=== PATIENT | male | born 1995 | race Caucasian/White ===

== ENCOUNTER 2019-01-24 14:23 | Emergency (ER) | payer OTHER, SELFPAY ==
[~2019-01-24] VITALS: Ht 188 cm; Wt 119.6 kg
[~2019-01-24 14:23] MED LIST: CETI10TA OR; CONC18TA OR; VICO5TAB PO; VITACAP33 PO
[2019-01-24] MEDS ORDERED: NALT50TA4 (14:31)
[2019-01-24] MEDS ORDERED: BUPR1TAB52 (14:31)
[2019-01-24] MEDS ORDERED: INVE1.75 (14:31)
[2019-01-24 15:45] LABS: HEMATOCRIT 46.3 % (42.0-52.0); HEMOGLOBIN 16.7 g/dl (13.5-17.5); MEAN CORPUSCULAR HEMOGLOBIN 32.9 pg (27.0-33.0); MEAN CORPUSCULAR HGB CONC 36.1 g/dl (32.0-36.5); MEAN CORPUSCULAR VOLUME 91.1 fl (80.0-96.0); PLATELET COUNT, AUTOMATED 258 10^3/uL (150-450); RED BLOOD COUNT 5.08 10^6/uL (4.30-6.10); WHITE BLOOD COUNT 9.2 10^3/uL (4.0-10.0)
[2019-01-24 16:13] LABS: ACETAMINOPHEN LEVEL < 2.0 UG/ML (10.0-30.0); ALBUMIN 4.2 GM/DL (3.2-5.2); ALT/SGPT 169 U/L (12-78); BILIRUBIN,DIRECT 0.4 MG/DL (0.0-0.2); BILIRUBIN,TOTAL 1.1 MG/DL (0.2-1.0); BLOOD UREA NITROGEN 13 MG/DL (7-18); CALCIUM LEVEL 9.1 MG/DL (8.5-10.1); CARBON DIOXIDE LEVEL 26 MEQ/L (21-32); CHLORIDE LEVEL 103 MEQ/L (98-107); CREATININE FOR GFR 0.96 MG/DL (0.70-1.30); ETHYL ALCOHOL (ETHANOL) < 0.003 % (0.000-0.010); GLOMERULAR FILTRATION RATE > 60.0 (>60); GLUCOSE, FASTING 120 MG/DL (70-100); POTASSIUM SERUM 3.6 MEQ/L (3.5-5.1); SALICYLATE LEVEL < 1.7 MG/DL (5.0-30.0); SODIUM LEVEL 139 MEQ/L (136-145)
[2019-01-24 17:47] LABS: AMPHETAMINES LEVEL URINE NEGATIVE (NEGATIVE); BARBITURATES URINE NEGATIVE (NEGATIVE); BENZODIAZEPINES URINE NEGATIVE (NEGATIVE); CANNABINOIDS URINE NEGATIVE (NEGATIVE); COCAINE METABOLITE URINE NEGATIVE (NEGATIVE); METHADONE URINE NEGATIVE (NEGATIVE); OPIATES URINE NEGATIVE (NEGATIVE); PHENCYCLIDINE URINE NEGATIVE (NEGATIVE)
[2019-01-25] MEDS ORDERED: NICOTINE 14 MG/24 HR TRANSDERMAL TD ONE (07:30)
[2019-01-25] MEDS ORDERED: buPROPion (WELLBUTRIN SR) 100 MG SR TAB PO ONE (07:30)
[2019-01-25] MEDS ORDERED: NALTREXONE 50 MG TAB PO ONE (07:30)
[2019-01-25 08:33] VITALS: BP 132/70
--- NOTE | 2019-01-25 13:24 | ECGEPIP ---
[facility] - ED Test Date: 2019-01-25 Pat Name: ORLANDO EM Department: Room: - Gender: Male Disease Control Inspector: VANIA : 1995 Requested By: ANITHA Schwartz Order Number: [id number] Reading MD: Quinton Celeste Measurements Intervals [place] Rate: 74 P: 33 PA: 127 QRS: 51 QRSD: 120 T: 41 QT: 388 QTc: 431 Interpretive Statements SINUS RHYTHM INCOMPLETE RIGHT BUNDLE BRANCH BLOCK BENIGN EARLY REPOLARIZATION NO PRIORS FOR COMPARISON Electronically Signed on 01-25-2019 13:23:53 EDT by Quinton Celeste
== END 2019-01-25 08:35 | disposition short-term general hospital (02) ==
LOC: M ED 15:44
DX: R45.851 Suicidal ideations (principal); F31.9 Bipolar disorder, unspecified; Z79.899 Other long term (current) drug therapy; F17.210 Nicotine dependence, cigarettes, uncomplicated
CPT/HCPCS: 36415; 80048; 80076; 80307; 84443; 85027; 93005; 99284; G0480

== ENCOUNTER 2019-05-06 11:30 | Inpatient (IN) | payer MEDICAID, OTHER, SELFPAY ==
[~2019-05-06] VITALS: Ht 188 cm; Wt 115.3 kg
[2019-05-06] MEDS: MULTIVITAMINS/MINERALS THERAP 1 TAB PO SCH (09:00)
[2019-05-06] MEDS: FOLIC ACID 1 MG TAB PO SCH (09:00)
[~2019-05-06 11:30] MED LIST changes: +BUPR1TAB52; +INVE1.75 IM; +NALT50TA4
[2019-05-06 12:18] LABS: HEMOGLOBIN 16.9 g/dl (13.5-17.5); MEAN CORPUSCULAR HEMOGLOBIN 33.3 pg (27.0-33.0); MEAN CORPUSCULAR VOLUME 92.5 fl (80.0-96.0); PLATELET COUNT, AUTOMATED 200 10^3/uL (150-450); RED BLOOD COUNT 5.08 10^6/uL (4.30-6.10); WHITE BLOOD COUNT 10.4 10^3/uL (4.0-10.0)
[2019-05-06 12:31] LABS: AMPHETAMINES LEVEL URINE NEGATIVE (NEGATIVE); BARBITURATES URINE NEGATIVE (NEGATIVE); BENZODIAZEPINES URINE NEGATIVE (NEGATIVE); CANNABINOIDS URINE NEGATIVE (NEGATIVE); COCAINE METABOLITE URINE NEGATIVE (NEGATIVE); METHADONE URINE NEGATIVE (NEGATIVE); OPIATES URINE NEGATIVE (NEGATIVE); PHENCYCLIDINE URINE NEGATIVE (NEGATIVE)
[2019-05-06 12:56] LABS: ACETAMINOPHEN LEVEL < 2.0 UG/ML (10.0-30.0); ALBUMIN 4.2 GM/DL (3.2-5.2); ALT/SGPT 100 U/L (12-78); BILIRUBIN,DIRECT 0.2 MG/DL (0.0-0.2); BILIRUBIN,TOTAL 0.9 MG/DL (0.2-1.0); BLOOD UREA NITROGEN 7 MG/DL (7-18); CALCIUM LEVEL 9.1 MG/DL (8.5-10.1); CARBON DIOXIDE LEVEL 23 MEQ/L (21-32); CHLORIDE LEVEL 103 MEQ/L (98-107); CREATININE FOR GFR 0.95 MG/DL (0.70-1.30); ETHYL ALCOHOL (ETHANOL) < 0.003 % (0.000-0.010); GLOMERULAR FILTRATION RATE > 60.0 (>60); GLUCOSE, FASTING 119 MG/DL (70-100); POTASSIUM SERUM 4.3 MEQ/L (3.5-5.1); SALICYLATE LEVEL < 1.7 MG/DL (5.0-30.0); SODIUM LEVEL 138 MEQ/L (136-145); TOTAL PROTEIN 7.7 GM/DL (6.4-8.2)
[2019-05-06] MEDS ORDERED: NICOTINE 21MG/24HR 1 EA TRANSDERMAL TD ONE (13:30)
[2019-05-06] MEDS ORDERED: MOM 30ML SUSPENSION UDC PO PRN (16:45)
[2019-05-06] MEDS ORDERED: LORazepam 1 MG TAB PO ONE (16:45)
[2019-05-06] MEDS ORDERED: MAALOX 30 ML SUSP *UDC PO PRN (16:45)
[2019-05-06 19:14] VITALS: BP 129/62
[2019-05-06 20:45] VITALS: BP 141/66
[2019-05-06] MEDS: THIAMINE 100 MG TAB PO SCH (20:47)
[2019-05-06] MEDS: LORazepam 2 MG TAB PO PRN (20:48)
[2019-05-06] MEDS: traZODone 50 MG TAB PO PRN (23:04)
[2019-05-06 23:06] VITALS: BP 111/75
[2019-05-07 06:22] VITALS: BP 117/62
[2019-05-07 06:23] VITALS: BP 117/62
[2019-05-07] MEDS ORDERED: INFLUENZA QUADRIVALENT PF VACCINE 0.5ML SYRINGE (90686) IM ONE (09:00)
[2019-05-07] MEDS ORDERED: NICOTINE 21MG/24HR 1 EA TRANSDERMAL TD SCH (09:00)
[2019-05-07] MEDS: MULTIVITAMINS/MINERALS THERAP 1 TAB PO SCH (09:17)
[2019-05-07] MEDS: FOLIC ACID 1 MG TAB PO SCH (09:17)
[2019-05-07] MEDS: THIAMINE 100 MG TAB PO SCH ×2 (09:18→20:19)
--- NOTE | 2019-05-07 09:28 | MHHPEPDOC ---
[facility] History & Physical History and Physical Date of Service: 05/07/2019 Chief Complaint "I just want to kill myself." History of Present Illness Patient, a 24-year old man with a history of schizo-affective disorder, presents to [facility] after multiple psychosocial stressors including joblessness, conflict with his mother, and seeing a young lady whose mother did not approve of, as well as multiple arguments and suffering from chronic ciarra cidality, presents to [facility] with suicidal thoughts. He reports that he has had increasing depression, loss of interest, fatigue, difficulty concentrating. He reports significant cannabis use recently. He describes that he has had episodes of nery in the past. He is currently on I nvega Trinza every 3 months, but reports that he has developed a persistent want to . On the unit, he reportedly last night told staff that he had tried to kill himself with tissue paper by trying to obstruct his airway. He reports a significant cough today. He was placed on a one-to-one out of abundance of caution. He does discuss the majority of these concerning symptoms with an unusual affect, which he giggles and laughs. He reports having a significantly complicated relationship with his girlfriend. He does report having ideas at times of being aggressive, but it appears randomly and intrusively. His symptoms are fairly bizarre in nature. Review Of Systems Depression: As above. Anxiety: The patient denies any excessive worry associated with physical symptoms. They deny any experience of discreet panic in the past. Nery: Has episodes of elation with grandiose thoughts, delusions, talkatively, pressured thought, decreased need for sleep lasting more than 5 days at a time, last episode several months ago. Psychotic: Has had episodes of auditory hallucination, separate from his mood episodes with some delusions. Trauma: The patient denies any traumatic events associated with nightmares or intrusive thoughts. Borderline: Not screened at this time. Past Psychiatric History Patient has an extensive psychiatric history in which he has been diagnosed with schizo-affective disorder and is currently treated at [facility] with Jaron Willis as his prescriber. He's currently on Invega Trinza for the last year. He reports that he has tolerated it well. He reports that his last admission was in January to [facility] full. Allergies Please see below. Family Psychiatric History He's unclear if any family members have mental health concerns. Social History Patient lives in the local area. Describes that he recently was working as a [employer] worker, but is currently unemployed. He lives on his own. His mother supplies him money to pay for an apartment. He currently has no means of money other than this. He describes that he's currently with a girlfriend of 1 month who is significantly addicted to heroin. He reports conflict with mother over this. He describes that he had had no major trauma or abuse that he can remember. He reportedly has no major legal problems that he is aware of at this time. Substance Abuse History Patient reports that he smokes a pack of tobacco a day. Drinks significantly to the point of blacking out, where he'll drink roughly half a handle of alcohol per night. He reports using hallucinogens several weeks ago and consistent cannabis use every day. Medical History Reports vaping recently and has a cough. Mental Status Examination General: Fair hygiene Speech: Fluid Thought processes: Linear and logical MSK: Smooth and coordinated gait, no signs of tremors or involuntary orofacial movements Thought content: Bizarre Abstract reasoning, and computation: Impaired Description of associations: Impaired Description of abnormal or psychotic thoughts: Admits to suicidal thoughts with no plan at this time. Denies any auditory or visual hallucinations. Does not appear to be responding to internal stimuli Judgment: poor Insight: poor Orientation: Alert and orientated 3 Cognition: Grossly normal Recent and remote memory: Intact Attention span and concentration: Intact Fund of knowledge: Adequate Mood: "fine" Affect: Inappropriate, incongruent with bizarre laughter Diagnoses Unspecified schizo-affective disorder. Rule out substance-induced from cannabis versus hallucinogens. Tobacco use disorder, severe. Alcohol use disorder, severe. Cannabis use disorder, severe. Hallucinogen use disorder, severe. Unspecified personality disorder. Likely cluster B. Assessment and Plan Unspecified schizo-affective disorder: Will add lithium 300 mg of controlled release nightly. Discuss risks, benefits, and potential side effects with patient as well as alternatives. Patient selected this out of a range of options. Tobacco use disorder: Offered Chantix, patient declined. Will continue nicotine patch. Alcohol use disorder: Alcohol withdrawal protocol. Discussed naltrexone. Patient pre-contemplative about naltrexone and injectable. Hallucinogen use disorder: Continue to monitor. Unspecified personality disorder: Monitor for behavioral problems. Disposition Patient will need admission likely lasting longer than 2 midnights in order to treat his severe depression and suicidality. Problem List 1. Risk for suicide. 2. Substance abuse. 3. Depression. Initial Treatment Plan 1. Patient was admitted on a 39 legal status. 2. Complete history was obtained. 3. With patients permission, family will be contacted and database will be expanded. 4. Patients medication regimen will be reviewed and changed accordingly. 5. Patient will be provided with protected environment. 6. Patient will be treated with individual, group, and milieu therapies. 7. Patient will receive supportive psych-education. 8. Discharge planning will commence immediately. 9. Outpatient follow-up treatment will be strongly recommended. 10. The initial treatment plan will focus initially on: Estimated Length Of Stay 5 days. Time Spent 40 minutes. Monday Vital Signs Vital Signs Date Time Temp Pulse Resp B/P (MAP) Pulse Ox O2 Delivery O2 Flow Rate FiO2 05/07/19 06:23 99.5 78 18 117/62 (80) 05/06/19 19:14 97 05/06/19 17:23 Room Air Laboratory Data 24H Labs Laboratory Tests 2 05/06/19 11:54: Nucleated Red Blood Cells % (auto) 0.0, Anion Gap 12, Glomerular Filtration Rate > 60.0, Calcium Level 9.1, Aspartate Amino Transf (AST/SGOT) 67H, Alanine Am inotransferase (ALT/SGPT) 100H, Alkaline Phosphatase 72, Total Bilirubin 0.9, Direct Bilirubin 0.2, Total Protein 7.7, Albumin 4.2, Albumin/Globulin Ratio 1.20, Thyroid Stimulating Hormone (TSH) 1.080, Salicylates Level < 1.7L, Acetaminophen Level < 2.0L, Ethyl Alcohol Level < 0.003 05/06/19 11:55: Urine Amphetamines Screen NEGATIVE, Urine Benzodiazepines Screen NEGATIVE, Urine Opiates Screen NEGATIVE, Urine Methadone Screen NEGATIVE, Urine Barbiturates Screen NEGATIVE, Urine Phencyclidine Screen NEGATIVE, Urine Cocaine Metabolite Screen NEGATIVE, Urine Cannabinoids Screen NEGATIVE CBC/BMP Laboratory Tests 05/06/19 11:54 Red Blood Count 5.08, Mean Corpuscular Volume 92.5, Mean Corpuscular Hemoglobin 33.3 H, Mean Corpuscular Hemoglobin Concent 36.0, Red Cell Distribution Width 12.2 Medications Scheduled Paliperidone Palmitate (Invega Trinza) 819 Mg/2.625 Ml Syringe, 819 MG IM Q3M, (Reported) Allergies Coded Allergies: No Known Allergies (Verified , 10/28/11) DELORES SANON DO May 07, 2019 09:28
[2019-05-07] MEDS ORDERED: LORazepam 0.5 MG TAB PO ONE (10:15)
[2019-05-07] MEDS: NICOTINE POLACRILEX 2 MG GUM PO PRN ×2 (10:18→16:31)
--- NOTE | 2019-05-07 10:46 | HPEPDOC ---
General Date of Admission May 06, 2019 at 16:38 Date of Service: May 07, 2019 Chief Complaint The patient is a 24-year-old male admitted with a reason for visit of Unspecified Depressive Disorder. Source: Patient, Old records History of Present Illness Mr. Beck is a 24 years old man admitted to [facility] for depression. Pt denies any symptoms. Compete ROS is negative. Vitals are good. Labs are fine, except for chronically and moderately elevated ALT and AST in the setting of alcohol use. Home Medications Scheduled Paliperidone Palmitate (Invega Trinza) 819 Mg/2.625 Ml Syringe, 819 MG IM Q3M, (Reported) Allergies Coded Allergies: No Known Allergies (Verified , 10/28/11) Past Medical History Medical History None Surgical History none Family History Significant Family History: No pertinent family hx Social History * Smoker: current smoker Alcohol: heavy Drugs: other (mushroom) A-FIB/CHADSVASC A-FIB History Current/History of A-Fib/PAF?: No Physical Examination General Exam: Positive: Alert, Cooperative, No Acute Distress Eye Exam: Positive: PERRLA, Conjunctiva & lids normal ENT Exam: Positive: Atraumatic, Mucous membr. moist/pink Neck Exam: Positive: Supple; Negative: JVD Chest Exam: Positive: Clear to auscultation, Normal air movement Heart Exam: Positive: Rate Normal, Normal S1, Normal S2; Negative: Murmurs Abdomen Exam: Positive: Normal bowel sounds, Soft, Tenderness Extremity Exam: Positive: Normal pulses; Negative: Edema Skin Exam: Positive: Nl turgor and temperature, Rash Neuro Exam: Positive: Normal Gait, Normal Speech, Strength at 5/5 X4 ext, Normal Tone Psych Exam: Positive: Mental status NL, Mood NL Vital Signs Vital Signs Date Time Temp Pulse Resp B/P (MAP) Pulse Ox O2 Delivery O2 Flow Rate FiO2 05/07/19 06:23 99.5 78 18 117/62 (80) 05/06/19 19:14 97 05/06/19 17:23 Room Air Laboratory Data Labs 24H Laboratory Tests 2 05/06/19 11:54: Nucleated Red Blood Cells % (auto) 0.0, Anion Gap 12, Glomerular Filtration Rate > 60.0, Calcium Level 9.1, Aspartate Amino Transf (AST/SGOT) 67H, Alanine Aminotransferase (ALT/SGPT) 100H, Alkaline Phosphatase 72, Total Bilirubin 0.9, Direct Bilirubin 0.2, Total Protein 7.7, Albumin 4.2, Albumin/Globulin Ratio 1.20, Thyroid Stimulating Hormone (TSH) 1.080, Salicylates Level < 1.7L, Acetaminophen Level < 2.0L, Ethyl Alcohol Level < 0.003 05/06/19 11:55: Urine Amphetamines Screen NEGATIVE, Urine Benzodiazepines Screen NEGATIVE, Urine Opiates Screen NEGATIVE, Urine Methadone Screen NEGATIVE, Urine Barbiturates Screen NEGATIVE, Urine Phencyclidine Screen NEGATIVE, Urine Cocaine Metabolite Screen NEGATIVE, Urine Cannabinoids Screen NEGATIVE CBC/BMP Laboratory Tests 05/06/19 11:54 Red Blood Count 5.08, Mean Corpuscular Volume 92.5, Mean Corpuscular Hemoglobin 33.3 H, Mean Corpuscular Hemoglobin Concent 36.0, Red Cell Distribution Width 12.2 Assessment/Plan Chronic Alcoholic Hepatitis - Outpatient f/u Plan / VTE VTE Prophylaxis Ordered?: No VTE Exclusion Mechanical Proph: Low Risk for VTE VTE Exclusion Pharmacological: At Low Risk for VTE GRACE PAGE MD May 07, 2019 10:46
[2019-05-07] MEDS: ACETAMINOPHEN TAB 650MG DOSE (2X325MG) PO PRN (14:37)
[2019-05-07] MEDS ORDERED: predniSONE 20 MG TAB PO ONE (15:30)
--- NOTE | 2019-05-07 15:53 | REP ---
CHEST, TWO VIEWS: There is no evidence of acute infiltrate. No pleural effusion is seen. The heart is normal in size. The mediastinal silhouette is unremarkable. The visualized osseous structures are intact. IMPRESSION: No acute pulmonary disease. Electronically Signed by Sukhwinder Bowens MD 05/07/2019 04:27 P
[2019-05-07 16:07] VITALS: BP 119/56
[2019-05-07] MEDS: traZODone 50 MG TAB PO PRN (20:19)
[2019-05-07] MEDS: DEXTROMETHORPHAN 60MG/10ML SUSP 90ML BTL(DELSYM) PO SCH (20:19)
[2019-05-07] MEDS ORDERED: LITHIUM CARBONATE 300 MG **CR** TAB PO SCH (21:00)
[2019-05-08] MEDS ORDERED: traZODone 50 MG TAB PO ONE
[2019-05-08 06:00] VITALS: BP 106/55
[2019-05-08 09:04] LABS: HEPATITIS B SURFACE ANTIGEN NEGATIVE (NEGATIVE)
[2019-05-08] MEDS: MULTIVITAMINS/MINERALS THERAP 1 TAB PO SCH (09:48)
[2019-05-08] MEDS: THIAMINE 100 MG TAB PO SCH ×2 (09:48→20:32)
[2019-05-08] MEDS: DEXTROMETHORPHAN 60MG/10ML SUSP 90ML BTL(DELSYM) PO SCH ×2 (09:48→22:42)
[2019-05-08] MEDS: FOLIC ACID 1 MG TAB PO SCH (09:48)
--- NOTE | 2019-05-08 10:01 | MHIPNPDOC ---
[facility] Progress Note Progress Note Date of Service: 05/08/2019 History of Present Illness Patient is a 24-year old man with a history of schizo-affective disorder, presents to [facility] after multiple psychosocial stressors including joblessness, conflict with his mother, and seeing a young lady whose mother did not approve of, as well as multiple arguments and suffering from chronic suicidality, presents to [facility] with suicidal thought s. He reports that he has had increasing depression, loss of interest, fatigue, difficulty concentrating. He reports significant cannabis use recently. He describes that he has had episodes of nery in the past. He is currently on Invega Trinza every 3 months, but reports that he has developed a persistent want to . On the unit, he reportedly last night told staff that he had tried to kill himself with tissue paper by trying to obstruct his airway. He reports a significant cough today. He was placed on a one-to-one out of abundance of caution. He does discuss the majority of these concerning symptoms with an unusual affect, which he giggles and laughs. He reports having a significantly complicated relationship with his girlfriend. Interval History The patient is met with today. He is really sedated In the morning, but was able to wake up. He reports that his mood is still somewhat irritable and that he does have continued suicidal thoughts but he is able to contract for safety. He was taken off the one-to-one. He reports that he does not get hopeless and stressed out about his current situation. No behavioral problems overnight. Tree oneill notes that he has been amenable and non-confrontational. Review Of Systems General: Denies fever or appetite changes Cardiovascular: Denies chest pain or palpitations GI: Denies Nausea, vomiting, or bowel changes Respiratory: Denies shortness of breath or cough Neuro: Denies dizziness, tremors Derm: Denies any rashes or pruritus : Denies any dysuria or urinary hesitancy MSK: Denies any muscle tightness or stiffness HEENT: Denies any sore throat or headaches Psychotherapy None on this visit. Vital Signs Reviewed. Mental Status Examination General: Fair hygiene Speech: Fluid Thought processes: Linear and logical MSK: Smooth and coordinated gait, no signs of tremors or involuntary orofacial movements Thought content: Bizarre Abstract reasoning, and computation: Impaired Description of associations: Impaired Description of abnormal or psychotic thoughts: Admits to suicidal thoughts with no plan at this time. Denies any auditory or visual hallucinations. Does not appear to be responding to internal stimuli Judgment: poor Insight: poor Orientation: Alert and orientated 3 Cognition: Grossly normal Recent and remote memory: Intact Attention span and concentration: Intact Fund of knowledge: Adequate Mood: "fine" Affect: Inappropriate, incongruent with bizarre laughter Diagnoses Unspecified schizo-affective disorder. Rule out substance-induced from cannabis versus hallucinogens. Tobacco use disorder, severe. Alcohol use disorder, severe. Cannabis use disorder, severe. Hallucinogen use disorder, severe. Unspecified personality disorder. Likely cluster B. Assessment and Plan Unspecified schizo-affective disorder: Lower lithium to 150 mg of immediate release due to sedation. Tobacco use disorder: Offered Chantix, patient declined. Will continue nicotine patch. Alcohol use disorder: Alcohol withdrawal protocol. Discussed naltrexone. Patient pre-contemplative about naltrexone and injectable. Hallucinogen use disorder: Continue to monitor. Unspecified personality disorder: Monitor for behavioral problems. Disposition The patient will need further admission due to his unusual psychotic like symptoms and severe hopelessness and depression as well as consistent suicidal thoughts to stabilize his situation and to protect him from injuring himself. Time Spent 20 minutes [id number]. Monday Vital Signs Vital Signs Date Time Temp Pulse Resp B/P (MAP) Pulse Ox O2 Delivery O2 Flow Rate FiO2 05/08/19 06:00 98.1 70 12 106/55 (72) 05/07/19 09:00 Room Air 05/06/19 19:14 97 Current Medications Current Medications Medications (Trade) Dose Ordered Sig/Toño Route PRN Reason Start Time Stop Time Status Last Admin Dose Admin Acetaminophen (Tylenol Tab) 650 mg Q6HP PRN PO HEADACHE or DISCOMFORT 05/06/19 16:45 05/07/19 14:37 Al Hydrox/Mg Hydrox/Simethicone (Mylanta) 30 ml Q4HP PRN PO HEARTBURN/INDIGESTION 05/06/19 16:45 05/08/19 03:34 Dextromethorphan (Delsym Af 12hr Susp) 60 mg Q12H PO 05/07/19 21:00 05/08/19 09:48 Folic Acid (Folic Acid) 1 mg DAILY PO 05/06/19 09:00 05/08/19 09:48 Home Med (Med Rec Complete!) ASDIRECTED XX 05/06/19 14:00 05/06/19 14:19 DC [place] Carbonate (Lithobid Cr) 300 mg QHS PO 05/07/19 21:00 05/07/19 20:19 Lorazepam (Ativan) 2 mg ASDIRECTED PRN PO SEE PROTOCOL 05/06/19 19:30 05/06/19 20:48 Magnesium Hydroxide (Milk Of Magnesia) 30 ml DAILYPRN PRN PO CONSTIPATION 05/06/19 16:45 Multivitamins (Theragram-M) 1 tab DAILY PO 05/06/19 09:00 05/08/19 09:48 Nicotine (Nicoderm Cq 21mg) 1 patch DAILY TD 05/07/19 09:00 05/07/19 09:50 DC Nicotine (Nicorette) 2 mg Q2HP PRN PO SMOKING CESSATION 05/07/19 09:45 05/07/19 16:31 Thiamine HCl (Thiamine HCl) 100 mg BID PO 05/06/19 21:00 05/09/19 09:01 05/08/19 09:48 Trazodone HCl (Desyrel) 50 mg QHSP PRN PO INSOMNIA 05/06/19 16:45 05/07/19 20:19 Allergies Coded Allergies: No Known Allergies (Verified , 10/28/11) DELORES SANON DO May 08, 2019 10:01
[2019-05-08 12:29] LABS: HEPATITIS C VIRUS ABY INDEX 0.1 INDEX (<0.8)
[2019-05-08 13:57] VITALS: BP 133/69
[2019-05-08] MEDS: NICOTINE POLACRILEX 2 MG GUM PO PRN ×2 (14:00→20:38)
[2019-05-08] MEDS: LORazepam 2 MG TAB PO PRN ×2 (14:00→20:36)
[2019-05-08 15:32] VITALS: BP 163/77
[2019-05-08] MEDS: ACETAMINOPHEN TAB 650MG DOSE (2X325MG) PO PRN (20:32)
[2019-05-08] MEDS: LITHIUM CARBONATE 150 MG CAP PO SCH (20:33)
[2019-05-08 20:39] VITALS: BP 114/76
[2019-05-08] MEDS ORDERED: LITHIUM CARBONATE 300 MG **CR** TAB PO SCH (21:00)
[2019-05-09 06:30] VITALS: BP 124/73
--- NOTE | 2019-05-09 08:21 | MHIPNPDOC ---
[facility] Progress Note Progress Note Inpatient Progress Note Osmani Beck MRN: N/A Date of : N/A Date of Service: 05/09/2019 History of Present Illness Patient is a 24-year old man with a history of schizo-affective disorder, presents to [facility] after multiple psychosocial stressors including joblessness, conflict with his mother, and seeing a young lady whose mother did not approve of, as well as multiple arguments and suffering from chronic suicidality, presents to [facility] with suicidal thoughts. He reports that he has had increasing depression, loss of interest, fatigue, difficulty concentrating. He reports significant cannabis use recently. He describes that he has had episodes of nery in the past. He is currently on Invega Trinza every 3 months, but reports that he has developed a persistent want to . On the unit, he reportedly last night told staff that he had tried to kill himself with tissue paper by trying to obstruct his airway. He reports a significant cough today. He was placed on a one-to-one out of abundance of caution. He does discuss the majority of these concerning symptoms with an unusual affect, which he giggles and laughs. He reports having a significantly complicated relationship with his girlfriend. Interval History Patient's met with. He describes still being hopeless, depressed and sedated. He reports that he sleeps the majority of the day. He reports that he's still having difficulty with energy and that he has lost much interest in his daily activities. He has not had any major behavioral problems and is amenable to staff, redirectable and has not attended any groups. Review Of Systems General: Denies fever or appetite changes Cardiovascular: Denies chest pain or palpitations GI: Denies Nausea, vomiting, or bowel changes Respiratory: Denies shortness of breath or cough Neuro: Denies dizziness, tremors Derm: Denies any rashes or pruritus : Denies any dysuria or urinary hesitancy MSK: Denies any muscle tightness or stiffness HEENT: Denies sore throat at this time and headaches Psychotherapy None on this visit. Vital Signs Reviewed. Mental Status Examination General: Fair hygiene Speech: Fluid Thought processes: Linear and logical MSK: Smooth and coordinated gait, no signs of tremors or involuntary orofacial movements Thought content: Bizarre Abstract reasoning, and computation: Impaired Description of associations: Impaired Description of abnormal or psychotic thoughts: Admits to suicidal thoughts with no plan at this time. Denies any auditory or visual hallucinations. Does not appear to be responding to internal stimuli Judgment: poor Insight: poor Orientation: Alert and orientated 3 Cognition: Grossly normal Recent and remote memory: Intact Attention span and concentration: Intact Fund of knowledge: Adequate Mood: "Okay" Affect: Inappropriate, incongruent with bizarre laughter Diagnoses Unspecified schizoaffective disorder. Rule out substance-induced from cannabis versus hallucinogens. Tobacco use disorder, severe. Alcohol use disorder, severe. Cannabis use disorder, severe. Hallucinogen use disorder, severe. Unspecified personality disorder. Likely cluster B. Assessment and Plan Unspecified schizoaffective disorder: Continue lithium 150 mg of extended release. Tobacco use disorder: Offered Chantix, patient declined. Will continue nicotine patch. Alcohol use disorder: Alcohol withdrawal protocol. Discussed naltrexone. Patient pre-contemplative about naltrexone and injectable. Hallucinogen use disorder: Continue to monitor. Unspecified personality disorder: Monitor for behavioral problems. Fatigue: Continue modafinil 50 mg daily. Disposition The patient will need further admission due to his unusual psychotic like symptoms and severe hopelessness and depression as well as consistent suicidal thoughts to stabilize his situation and to protect him from injuring himself. Time Spent Twenty minutes Vital Signs Vital Signs Date Time Temp Pulse Resp B/P (MAP) Pulse Ox O2 Delivery O2 Flow Rate FiO2 05/09/19 06:30 97.8 70 18 124/73 (90) 05/08/19 12:30 Room Air 05/06/19 19:14 97 Current Medications Current Medications Medications (Trade) Dose Ordered Sig/Toño Route PRN Reason Start Time Stop Time Status Last Admin Dose Admin Acetaminophen (Tylenol Tab) 650 mg Q6HP PRN PO HEADACHE or DISCOMFORT 05/06/19 16:45 05/08/19 20:32 Al Hydrox/Mg Hydrox/Simethicone (Mylanta) 30 ml Q4HP PRN PO HEARTBURN/INDIGESTION 05/06/19 16:45 05/08/19 03:34 Dextromethorphan (Delsym Af 12hr Susp) 60 mg Q12H PO 05/07/19 21:00 05/08/19 22:42 Folic Acid (Folic Acid) 1 mg DAILY PO 05/06/19 09:00 05/08/19 09:48 Home Med (Med Rec Complete!) ASDIRECTED XX 05/06/19 14:00 05/06/19 14:19 DC [place] Carbonate ([place]nci Carbonate) 150 mg QHS PO 05/08/19 21:00 05/08/19 20:33 [place] Carbonate (Lithobid Cr) 150 mg QHS PO 05/08/19 21:00 UNV [place] Carbonate (Lithobid Cr) 300 mg QHS PO 05/07/19 21:00 05/08/19 15:03 DC 05/07/19 20:19 Lorazepam (Ativan) 2 mg ASDIRECTED PRN PO SEE PROTOCOL 05/06/19 19:30 05/08/19 20:36 Magnesium Hydroxide (Milk Of Magnesia) 30 ml DAILYPRN PRN PO CONSTIPATION 05/06/19 16:45 Multivitamins (Theragram-M) 1 tab DAILY PO 05/06/19 09:00 05/08/19 09:48 Nicotine (Nicoderm Cq 21mg) 1 patch DAILY TD 05/07/19 09:00 05/07/19 09:50 DC Nicotine (Nicorette) 2 mg Q2HP PRN PO SMOKING CESSATION 05/07/19 09:45 05/08/19 20:38 Thiamine HCl (Thiamine HCl) 100 mg BID PO 05/06/19 21:00 05/09/19 09:01 05/08/19 20:32 Trazodone HCl (Desyrel) 50 mg QHSP PRN PO INSOMNIA 05/06/19 16:45 05/07/19 20:19 Allergies Coded Allergies: No Known Allergies (Verified , 10/28/11) DELORES SANON DO May 09, 2019 08:21
[2019-05-09] MEDS: FOLIC ACID 1 MG TAB PO SCH (08:56)
[2019-05-09] MEDS: MULTIVITAMINS/MINERALS THERAP 1 TAB PO SCH (08:56)
[2019-05-09] MEDS: THIAMINE 100 MG TAB PO SCH (08:56)
[2019-05-09] MEDS: NICOTINE POLACRILEX 2 MG GUM PO PRN ×3 (08:57→17:57)
[2019-05-09] MEDS: DEXTROMETHORPHAN 60MG/10ML SUSP 90ML BTL(DELSYM) PO SCH ×2 (09:57→19:57)
[2019-05-09] MEDS ORDERED: MODAFINIL 100 MG TABLET PO ONE (11:15)
[2019-05-09] MEDS ORDERED: PILL CUTTER 1 EACH XX PRN (11:45)
[2019-05-09 18:47] VITALS: BP 124/67
[2019-05-09 19:52] VITALS: BP 104/71
[2019-05-09] MEDS: LITHIUM CARBONATE 150 MG CAP PO SCH (19:56)
[2019-05-10 06:06] VITALS: BP 109/56
[2019-05-10] MEDS ORDERED: MODAFINIL 100 MG TABLET PO SCH (09:00)
[2019-05-10] MEDS: DEXTROMETHORPHAN 60MG/10ML SUSP 90ML BTL(DELSYM) PO SCH ×2 (09:44→19:37)
[2019-05-10] MEDS: MULTIVITAMINS/MINERALS THERAP 1 TAB PO SCH (09:44)
[2019-05-10] MEDS: FOLIC ACID 1 MG TAB PO SCH (09:44)
[2019-05-10 10:00] VITALS: BP 109/56
[2019-05-10 13:45] VITALS: BP 118/62
[2019-05-10] MEDS: LORazepam 2 MG TAB PO PRN (14:00)
[2019-05-10] MEDS ORDERED: LORazepam 1 MG TAB PO ONE (18:15)
[2019-05-10 18:21] VITALS: BP 111/62
--- NOTE | 2019-05-10 18:50 | MHIPNPDOC ---
[facility] Progress Note Progress Note Inpatient Progress Note Osmani Beck MRN: N/A Date of : N/A Date of Service: 05/10/2019 History of Present Illness Patient is a 24-year old man with a history of schizo-affective disorder, presents to [facility] after multiple psychosocial stressors including joblessness, conflict with his mother, and seeing a young lady whose mother did not approve of, as well as multiple arguments and suffering from chronic suicidality, presents to [facility] with suicidal thoughts. He reports that he has had increasing depression, loss of interest, fatigue, difficulty concentrating. He reports significant cannabis use recently. He describes that he has had episodes of nery in the past. He is currently on Invega Trinza every 3 months, but reports that he has developed a persistent want to . On the unit, he reportedly last night told staff that he had tried to kill himself with tissue paper by trying to obstruct his airway. He reports a significant cough today. He was placed on a one-to-one out of abundance of caution. He does discuss the majority of these concerning symptoms with an unusual affect, which he giggles and laughs. He reports having a significantly complicated relationship with his girlfriend. Interval History The patient's met with today. He reports that he still feels fairly sedated and had woken much later in the day. He described that he got angry with all the yelling, but that he had no intention of harming anyone. He still remains in behavioral control, not attending groups, but demonstrating no concerning behavior. He reports continued suicidal thoughts, hopelessness, difficulty with finding meaning in his life and significant fatigue, loss of interest that makes it difficult for him to work. He reports that he's not sure if the lithium is helpful. He describes that overall he's unsure if he'll ever get better. Reportedly that he stated that he had "wanted to kill himself once he left and felt that there was no hope." Patient reports some increased irritability and restlessness since taking the modafinil. Review Of Systems General: Denies fever or appetite changes Cardiovascular: Denies chest pain or palpitations GI: Denies Nausea, vomiting, or bowel changes Respiratory: Denies shortness of breath or cough Neuro: Denies dizziness, tremors Derm: Denies any rashes or pruritus : Denies any dysuria or urinary hesitancy MSK: Denies any muscle tightness or stiffness HEENT: Denies sore throat at this time and headaches Heme: Denies any bleeding or bruising Endo/Lymph: Denies any heat/cold intolerance or dry skin Psychotherapy None on this visit. Vital Signs Reviewed. Mental Status Examination General: Fair hygiene Speech: Fluid Thought processes: Linear and logical MSK: Smooth and coordinated gait, no signs of tremors or involuntary orofacial movements Thought content: Bizarre Abstract reasoning, and computation: Impaired Description of associations: Impaired Description of abnormal or psychotic thoughts: Admits to suicidal thoughts with no plan at this time. Denies any auditory or visual hallucinations. Does not appear to be responding to internal stimuli Judgment: poor Insight: poor Orientation: Alert and orientated 3 Cognition: Grossly normal Recent and remote memory: Intact Attention span and concentration: Intact Fund of knowledge: Adequate Mood: "Okay" Affect: Dysthymic with a constricted range, at times bizarre laughter Diagnoses Unspecified schizoaffective disorder. Rule out substance-induced from cannabis versus hallucinogens. Tobacco use disorder, severe. Alcohol use disorder, severe. Cannabis use disorder, severe. Hallucinogen use disorder, severe. Unspecified personality disorder. Likely cluster B. Assessment and Plan Unspecified schizoaffective disorder: Discontinue lithium. Start Depakote 250 mg nightly. Discussed risks, benefits and potential side effects. Continue Invega Trinza. Tobacco use disorder: Offered Chantix, patient declined. Will continue nicotine patch. Alcohol use disorder: Alcohol withdrawal protocol. Discussed naltrexone. Patient pre-contemplative about naltrexone and injectable. Hallucinogen use disorder: Continue to monitor. Unspecified personality disorder: Monitor for behavioral problems. Fatigue: Discontinue modafinil. It appears patient reports more irritability and uncomfortable restlessness. We'll add Ativan as needed to treat restlessness. Disposition The patient will need further admission due to his unusual psychotic like symptoms and severe hopelessness and depression as well as consistent suicidal thoughts to stabilize his situation and to protect him from injuring himself. Time Spent 20 minutes. Monday Vital Signs Vital Signs Date Time Temp Pulse Resp B/P (MAP) Pulse Ox O2 Delivery O2 Flow Rate FiO2 05/10/19 18:21 99.0 96 16 111/62 (78) 05/10/19 14:43 Room Air 05/10/19 10:00 97 Current Medications Current Medications Medications (Trade) Dose Ordered Sig/Toño Route PRN Reason Start Time Stop Time Status Last Admin Dose Admin Acetaminophen (Tylenol Tab) 650 mg Q6HP PRN PO HEADACHE or DISCOMFORT 05/06/19 16:45 05/08/19 20:32 Al Hydrox/Mg Hydrox/Simethicone (Mylanta) 30 ml Q4HP PRN PO HEARTBURN/INDIGESTION 05/06/19 16:45 05/08/19 03:34 Dextromethorphan (Delsym Af 12hr Susp) 60 mg Q12H PO 05/07/19 21:00 05/09/19 10:33 DC 05/09/19 09:57 Dextromethorphan (Delsym Af 12hr Susp) 60 mg Q12H PO 05/09/19 21:00 05/10/19 09:44 Divalproex Sodium (Depakote Er) 250 mg QHS PO 05/10/19 21:00 Folic Acid (Folic Acid) 1 mg DAILY PO 05/06/19 09:00 05/10/19 09:44 Home Med (Med Rec Complete!) ASDIRECTED XX 05/06/19 14:00 05/06/19 14:19 DC [place] Carbonate ([place] Carbonate) 150 mg QHS PO 05/08/19 21:00 05/10/19 18:04 DC 05/09/19 19:56 [place] Carbonate (Lithobid Cr) 150 mg QHS PO 05/08/19 21:00 UNV [place] Carbonate (Lithobid Cr) 300 mg QHS PO 05/07/19 21:00 05/08/19 15:03 DC 05/07/19 20:19 Lorazepam (Ativan) 2 mg ASDIRECTED PRN PO SEE PROTOCOL 05/06/19 19:30 05/10/19 14:00 Magnesium Hydroxide (Milk Of Magnesia) 30 ml DAILYPRN PRN PO CONSTIPATION 05/06/19 16:45 Modafinil (Provigil) 50 mg QAM PO 05/10/19 09:00 05/10/19 18:03 DC 05/10/19 09:44 Multivitamins (Theragram-M) 1 tab DAILY PO 05/06/19 09:00 05/10/19 09:44 Nicotine (Nicoderm Cq 21mg) 1 patch DAILY TD 05/07/19 09:00 05/07/19 09:50 DC Nicotine (Nicorette) 2 mg Q2HP PRN PO SMOKING CESSATION 05/07/19 09:45 05/09/19 17:57 Thiamine HCl (Thiamine HCl) 100 mg BID PO 05/06/19 21:00 05/09/19 09:01 DC 05/09/19 08:56 Trazodone HCl (Desyrel) 50 mg QHSP PRN PO INSOMNIA 05/06/19 16:45 05/07/19 20:19 Allergies Coded Allergies: No Known Allergies (Verified , 10/28/11) DELORES SANON DO May 10, 2019 18:50
[2019-05-10] MEDS: DIVALPROEX 250MG *ER* TAB PO SCH (19:37)
[2019-05-10] MEDS: NICOTINE POLACRILEX 2 MG GUM PO PRN (19:41)
[2019-05-10 23:25] VITALS: BP 102/74
[2019-05-10] MEDS: traZODone 50 MG TAB PO PRN (23:52)
[2019-05-11 03:30] VITALS: BP 120/55
[2019-05-11 06:38] VITALS: BP 106/55
[2019-05-11] MEDS: DEXTROMETHORPHAN 60MG/10ML SUSP 90ML BTL(DELSYM) PO SCH ×2 (09:28→21:01)
[2019-05-11] MEDS: MULTIVITAMINS/MINERALS THERAP 1 TAB PO SCH (09:28)
[2019-05-11] MEDS: FOLIC ACID 1 MG TAB PO SCH (09:28)
[2019-05-11 11:45] VITALS: BP 124/56
[2019-05-11 11:46] VITALS: BP 124/56
[2019-05-11 15:56] VITALS: BP 146/78
[2019-05-11] MEDS: DIVALPROEX 250MG *ER* TAB PO SCH (21:01)
[2019-05-11] MEDS: NICOTINE POLACRILEX 2 MG GUM PO PRN (21:04)
[2019-05-11] MEDS: traZODone 50 MG TAB PO PRN (22:33)
[2019-05-12 06:38] VITALS: BP 127/59
[2019-05-12] MEDS: DEXTROMETHORPHAN 60MG/10ML SUSP 90ML BTL(DELSYM) PO SCH ×2 (09:04→20:52)
[2019-05-12] MEDS: FOLIC ACID 1 MG TAB PO SCH (09:05)
[2019-05-12] MEDS: MULTIVITAMINS/MINERALS THERAP 1 TAB PO SCH (09:05)
[2019-05-12 15:47] VITALS: BP 173/82
[2019-05-12] MEDS: DIVALPROEX 250MG *ER* TAB PO SCH (20:53)
[2019-05-12] MEDS: traZODone 50 MG TAB PO PRN (23:02)
[2019-05-13] MEDS ORDERED: LORazepam 0.5 MG TAB PO ONE
[2019-05-13 06:47] VITALS: BP 112/56
[2019-05-13] MEDS: DEXTROMETHORPHAN 60MG/10ML SUSP 90ML BTL(DELSYM) PO SCH ×2 (08:36→21:57)
[2019-05-13] MEDS: MULTIVITAMINS/MINERALS THERAP 1 TAB PO SCH (08:36)
[2019-05-13] MEDS: FOLIC ACID 1 MG TAB PO SCH (08:36)
--- NOTE | 2019-05-13 10:31 | MHIPNPDOC ---
[facility] Progress Note Progress Note Inpatient Progress Note Osmani Beck MRN: N/A Date of : N/A Date of Service: 05/13/2019 History of Present Illness Patient is a 24-year old man with a history of schizo-affective disorder, presents to [facility] after multiple psychosocial stressors including joblessness, conflict with his mother, and seeing a young lady whose mother did not approve of, as well as multiple arguments and suffering from chronic suicidality, presents to [facility] with suicidal thoughts. He reports that he has had increasing depression, loss of interest, fatigue, difficulty concentrating. He reports significant cannabis use recently. He describes that he has had episodes of nery in the past. He is currently on Invega Trinza every 3 months, but reports that he has developed a persistent want to . On the unit, he reportedly last night told staff that he had tried to kill himself with tissue paper by trying to obstruct his airway. He reports a significant cough today. He was placed on a one-to-one out of abundance of caution. He does discuss the majority of these concerning symptoms with an unusual affect, which he giggles and laughs. He reports having a significantly complicated relationship with his girlfriend. Interval History The patient's met with today. He reports that he has had continued hopelessness and difficulty focusing on improvements in his life. He still remains intermittently suicidal, but with no plan or intention to act at this time. Reports he's concerned about when he leaves. He reports that he has had some fatigue, loss of interest and difficulty with concentration and focus. He has not been to any groups consistently, but has not had any behavioral problems. Review Of Systems General: Denies fever or appetite changes Cardiovascular: Denies chest pain or palpitations GI: Denies Nausea, vomiting, or bowel changes Respiratory: Denies shortness of breath or cough Neuro: Denies dizziness, tremors Derm: Denies any rashes or pruritus : Denies any dysuria or urinary hesitancy MSK: Denies any muscle tightness or stiffness HEENT: Denies sore throat at this time and headaches Heme: Denies any bleeding or bruising Endo/Lymph: Denies any heat/cold intolerance or dry skin Psychotherapy None on this visit. Vital Signs Reviewed. Mental Status Examination General: Fair hygiene Speech: Fluid Thought processes: Linear and logical MSK: Smooth and coordinated gait, no signs of tremors or involuntary orofacial movements Thought content: Bizarre Abstract reasoning, and computation: Impaired Description of associations: Impaired Description of abnormal or psychotic thoughts: Admits to suicidal thoughts with no plan at this time. Denies any auditory or visual hallucinations. Does not appear to be responding to internal stimuli Judgment: poor Insight: poor Orientation: Alert and orientated 3 Cognition: Grossly normal Recent and remote memory: Intact Attention span and concentration: Intact Fund of knowledge: Adequate Mood: "Okay" Affect: Dysthymic with a constricted range, at times bizarre laughter Diagnoses Unspecified schizoaffective disorder. Rule out substance-induced from cannabis versus hallucinogens. Tobacco use disorder, severe. Alcohol use disorder, severe. Cannabis use disorder, severe. Hallucinogen use disorder, severe. Unspecified personality disorder. Likely cluster B. Assessment and Plan Unspecified schizoaffective disorder: Discontinue Depakote. Add 3 mg of Invega in the evenings in order to increase plasma levels as Trinza could be subtherapeutic. Tobacco use disorder: Offered Chantix, patient declined. Will continue nicotine patch. Alcohol use disorder: Alcohol withdrawal protocol. Discussed naltrexone. Patient pre-contemplative about naltrexone and injectable. Hallucinogen use disorder: Continue to monitor. Unspecified personality disorder: Monitor for behavioral problems. Disposition The patient will need further admission due to his unusual psychotic like symptoms and severe hopelessness and depression as well as consistent suicidal thoughts to stabilize his situation and to protect him from injuring himself. Time Spent 20 minutes [id number]. Monday Vital Signs Vital Signs Date Time Temp Pulse Resp B/P (MAP) Pulse Ox O2 Delivery O2 Flow Rate FiO2 05/13/19 06:47 98.7 66 12 112/56 (74) 05/12/19 08:05 Room Air 05/10/19 10:00 97 Current Medications Current Medications Medications (Trade) Dose Ordered Sig/Toño Route PRN Reason Start Time Stop Time Status Last Admin Dose Admin Acetaminophen (Tylenol Tab) 650 mg Q6HP PRN PO HEADACHE or DISCOMFORT 05/06/19 16:45 05/08/19 20:32 Al Hydrox/Mg Hydrox/Simethicone (Mylanta) 30 ml Q4HP PRN PO HEARTBURN/INDIGESTION 05/06/19 16:45 05/08/19 03:34 Dextromethorphan (Delsym Af 12hr Susp) 60 mg Q12H PO 05/07/19 21:00 05/09/19 10:33 DC 05/09/19 09:57 Dextromethorphan (Delsym Af 12hr Susp) 60 mg Q12H PO 05/09/19 21:00 05/13/19 08:36 Divalproex Sodium (Depakote Er) 250 mg QHS PO 05/10/19 21:00 05/12/19 20:53 Folic Acid (Folic Acid) 1 mg DAILY PO 05/06/19 09:00 05/13/19 08:36 Home Med (Med Rec Complete!) ASDIRECTED XX 05/06/19 14:00 05/06/19 14:19 DC [place] Carbonate ([place] Carbonate) 150 mg QHS PO 05/08/19 21:00 05/10/19 18:04 DC 05/09/19 19:56 [place] Carbonate (Lithobid Cr) 150 mg QHS PO 05/08/19 21:00 UNV [place] Carbonate (Lithobid Cr) 300 mg QHS PO 05/07/19 21:00 05/08/19 15:03 DC 05/07/19 20:19 Lorazepam (Ativan) 2 mg ASDIRECTED PRN PO SEE PROTOCOL 05/06/19 19:30 05/11/19 11:53 DC 05/10/19 14:00 Magnesium Hydroxide (Milk Of Magnesia) 30 ml DAILYPRN PRN PO CONSTIPATION 05/06/19 16:45 Modafinil (Provigil) 50 mg QAM PO 05/10/19 09:00 05/10/19 18:03 DC 05/10/19 09:44 Multivitamins (Theragram-M) 1 tab DAILY PO 05/06/19 09:00 05/13/19 08:36 Nicotine (Nicoderm Cq 21mg) 1 patch DAILY TD 05/07/19 09:00 05/07/19 09:50 DC Nicotine (Nicorette) 2 mg Q2HP PRN PO SMOKING CESSATION 05/07/19 09:45 05/11/19 21:04 Thiamine HCl (Thiamine HCl) 100 mg BID PO 05/06/19 21:00 9/26/19 09:01 DC 05/09/19 08:56 Trazodone HCl (Desyrel) 50 mg QHSP PRN PO INSOMNIA 05/06/19 16:45 05/12/19 23:02 Allergies Coded Allergies: No Known Allergies (Verified , 10/28/11) DELORES SANON DO May 13, 2019 10:31
[2019-05-13] MEDS ORDERED: LORazepam 0.5 MG TAB PO STA (16:06)
[2019-05-13 18:15] VITALS: BP 126/68
[2019-05-13] MEDS: traZODone 50 MG TAB PO PRN (21:57)
[2019-05-13] MEDS: PALIPERIDONE 3 MG ER TAB (INVEGA) PO SCH (21:57)
[2019-05-14 07:03] VITALS: BP 127/74
[2019-05-14] MEDS: MULTIVITAMINS/MINERALS THERAP 1 TAB PO SCH (09:21)
[2019-05-14] MEDS: DEXTROMETHORPHAN 60MG/10ML SUSP 90ML BTL(DELSYM) PO SCH ×2 (09:21→21:51)
[2019-05-14] MEDS: FOLIC ACID 1 MG TAB PO SCH (09:21)
[2019-05-14] MEDS ORDERED: BENZTROPINE 0.5 MG TAB PO ONE (12:00)
--- NOTE | 2019-05-14 14:15 | MHIPNPDOC ---
[facility] Progress Note Progress Note Inpatient Progress Note Osmani Beck MRN: N/A Date of : N/A Date of Service: 05/14/2019 History of Present Illness Patient is a 24-year old man with a history of schizo-affective disorder, presents to [facility] after multiple psychosocial stressors including joblessness, conflict with his mother, and seeing a young lady whose mother did not approve of, as well as multiple arguments and suffering from chronic suicidality, presents to [facility] with suicidal thoughts. He reports that he has had increasing depression, loss of interest, fatigue, difficulty concentrating. He reports significant cannabis use recently. He describes that he has had episodes of nery in the past. He is currently on Invega Trinza every 3 months, but reports that he has developed a persistent want to . On the unit, he reportedly last night told staff that he had tried to kill himself with tissue paper by trying to obstruct his airway. He reports a significant cough today. He was placed on a one-to-one out of abundance of caution. He does discuss the majority of these concerning symptoms with an unusual affect, which he giggles and laughs. He reports having a significantly complicated relationship with his girlfriend. Interval History The patient is met with today. He reports that he has still got some ho pefulness, but he discusses more at length the stressors in the form of his girlfriend whose mother disapproves of and wishes that he would not be around. She describes that she is a troubled young lady, but that he finds her intriguing because of this. He does report feeling "squirrelly" where he is having to get up and down and feels restless. He reports that he has been on sleep at night with the Invega 3 mg at night, but it is unclear as to what is causing his restlessness. He has been attending group social on the unit. He has been playing chess with other patients and has been making some improvements in terms of his social ability. He also continue to report depressed mood and loss of interest. Review Of Systems General: Denies fever or appetite changes Cardiovascular: Denies chest pain or palpitations GI: Denies Nausea, vomiting, or bowel changes Respiratory: Denies shortness of breath or cough Neuro: Denies dizziness, denies tremors. Reports some restlessness, positive akathisia? Derm: Denies any rashes or pruritus : Denies any dysuria or urinary hesitancy MSK: Denies any muscle tightness or stiffness HEENT: Denies sore throat at this time and headaches Heme: Denies any bleeding or bruising Endo/Lymph: Denies any heat/cold intolerance or dry skin Psychotherapy None on this visit. Vital Signs Reviewed. Mental Status Examination General: Fair hygiene Speech: Fluid Thought processes: Linear and logical MSK: Smooth and coordinated gait, no signs of tremors or involuntary orofacial movements Thought content: Bizarre Abstract reasoning, and computation: Impaired Description of associations: Impaired Description of abnormal or psychotic thoughts: Admits to suicidal thoughts with no plan at this time. Denies any auditory or visual hallucinations. Does not appear to be responding to internal stimuli Judgment: poor Insight: poor Orientation: Alert and orientated 3 Cognition: Grossly normal Recent and remote memory: Intact Attention span and concentration: Intact Fund of knowledge: Adequate Mood: "Okay" Affect: Improving range. Diagnoses Unspecified schizoaffective disorder. Rule out substance-induced from cannabis versus hallucinogens. Tobacco use disorder, severe. Alcohol use disorder, severe. Cannabis use disorder, severe. Hallucinogen use disorder, severe. Unspecified personality disorder. Likely cluster B. Assessment and Plan Unspecified schizoaffective disorder: Continue Invega 3 mg, try 0.25 mg of Cogentin to see if this treats the aforementioned restlessness. If it does, it is likely EPS and will need to discontinue the Invega as it could be causing akathisia. Tobacco use disorder: Offered Chantix, patient declined. Will continue nicotine patch. Alcohol use disorder: Alcohol withdrawal protocol. Discussed naltrexone. Patient pre-contemplative about naltrexone and injectable. Hallucinogen use disorder: Continue to monitor. Unspecified personality disorder: Monitor for behavioral problems. Disposition The patient will need further admission due to his unusual psychotic like symptoms and severe hopelessness and depression as well as consistent suicidal thoughts to stabilize his situation and to protect him from injuring himself. Time Spent 20 minutes. Monday Vital Signs Vital Signs Date Time Temp Pulse Resp B/P (MAP) Pulse Ox O2 Delivery O2 Flow Rate FiO2 05/14/19 11:48 Room Air 05/14/19 07:03 98.0 87 12 127/74 (91) 05/10/19 10:00 97 Current Medications Current Medications Medications (Trade) Dose Ordered Sig/Toño Route PRN Reason Start Time Stop Time Status Last Admin Dose Admin Acetaminophen (Tylenol Tab) 650 mg Q6HP PRN PO HEADACHE or DISCOMFORT 05/06/19 16:45 05/08/19 20:32 Al Hydrox/Mg Hydrox/Simethicone (Mylanta) 30 ml Q4HP PRN PO HEARTBURN/INDIGESTION 05/06/19 16:45 05/08/19 03:34 Dextromethorphan (Delsym Af 12hr Susp) 60 mg Q12H PO 05/07/19 21:00 05/09/19 10:33 DC 05/09/19 09:57 Dextromethorphan (Delsym Af 12hr Susp) 60 mg Q12H PO 05/09/19 21:00 05/14/19 09:21 Divalproex Sodium (Depakote Er) 250 mg QHS PO 05/10/19 21:00 05/13/19 13:08 DC 05/12/19 20:53 Folic Acid (Folic Acid) 1 mg DAILY PO 05/06/19 09:00 05/14/19 09:21 Home Med (Med Rec Complete!) ASDIRECTED XX 05/06/19 14:00 05/06/19 14:19 DC [place] Carbonate ([place] Carbonate) 150 mg QHS PO 05/08/19 21:00 05/10/19 18:04 DC 05/09/19 19:56 [place] Carbonate (Lithobid Cr) 150 mg QHS PO 05/08/19 21:00 UNV [place] Carbonate (Lithobid Cr) 300 mg QHS PO 05/07/19 21:00 05/08/19 15:03 DC 05/07/19 20:19 Lorazepam (Ativan) 0.5 mg STAT STAT PO 05/13/19 16:06 05/13/19 16:10 DC 05/13/19 16:23 Lorazepam (Ativan) 2 mg ASDIRECTED PRN PO SEE PROTOCOL 05/06/19 19:30 05/11/19 11:53 DC 05/10/19 14:00 Magnesium Hydroxide (Milk Of Magnesia) 30 ml DAILYPRN PRN PO CONSTIPATION 05/06/19 16:45 Modafinil (Provigil) 50 mg QAM PO 05/10/19 09:00 05/10/19 18:03 DC 05/10/19 09:44 Multivitamins (Theragram-M) 1 tab DAILY PO 05/06/19 09:00 05/14/19 09:21 Nicotine (Nicoderm Cq 21mg) 1 patch DAILY TD 05/07/19 09:00 05/07/19 09:50 DC Nicotine (Nicorette) 2 mg Q2HP PRN PO SMOKING CESSATION 05/07/19 09:45 05/11/19 21:04 Paliperidone (Invega) 3 mg QHS PO 05/13/19 21:00 05/13/19 21:57 Thiamine HCl (Thiamine HCl) 100 mg BID PO 05/06/19 21:00 05/09/19 09:01 DC 05/09/19 08:56 Trazodone HCl (Desyrel) 50 mg QHSP PRN PO INSOMNIA 05/06/19 16:45 05/13/19 21:57 Allergies Coded Allergies: No Known Allergies (Verified , 10/28/11) DELORES SANON DO May 14, 2019 14:15
[2019-05-14 16:55] VITALS: BP 140/70
[2019-05-14] MEDS: PALIPERIDONE 3 MG ER TAB (INVEGA) PO SCH (21:51)
[2019-05-14] MEDS: traZODone 50 MG TAB PO PRN (22:01)
[2019-05-15 06:36] VITALS: BP 118/58
[2019-05-15] MEDS: FOLIC ACID 1 MG TAB PO SCH (08:48)
[2019-05-15] MEDS: MULTIVITAMINS/MINERALS THERAP 1 TAB PO SCH (08:48)
[2019-05-15] MEDS: DEXTROMETHORPHAN 60MG/10ML SUSP 90ML BTL(DELSYM) PO SCH ×2 (08:48→21:40)
[2019-05-15] MEDS ORDERED: BENZTROPINE 1 MG TAB PO PRN (09:00)
[2019-05-15] MEDS ORDERED: BENZTROPINE MESYLATE 2MG/2ML VIAL IM ONE (09:00)
--- NOTE | 2019-05-15 10:17 | MHIPNPDOC ---
[facility] Progress Note Progress Note Inpatient Progress Note Osmani Beck MRN: N/A Date of : N/A Date of Service: 05/15/2019 History of Present Illness Patient is a 24-year old man with a history of schizo-affective disorder, presents to [facility] after multiple psychosocial stressors including joblessness, conflict with his mother, and seeing a young lady whose mother did not approve of, as well as multiple arguments and suffering from chronic suicidality, presents to [facility] with suicidal thoughts. He reports that he has had increasing depression, loss of interest, fatigue, difficulty concentrating. He reports significant cannabis use recently. He describes that he has had episodes of nery in the past. He is currently on Invega Trinza every 3 months, but reports that he has developed a persistent want to . On the unit, he reportedly last night told staff that he had tried to kill himself with tissue paper by trying to obstruct his airway. He reports a significant cough today. He was placed on a one-to-one out of abundance of caution. He does discuss the majority of these concerning symptoms with an unusual affect, which he giggles and laughs. He reports having a significantly complicated relationship with his girlfriend. Interval History The patient was met with today and he reports he is feeling somewhat better, less hopeless and his suicidal ideation is more fleeting. He has been attending groups, being coming more amenable and social in the unit and he reports that his girlfriend had dumped him, which he felt was quite good as he was worried about dumping her and the emotional fallout of that. He reports he did have some EPS this morning with jaw clenching, but the Dawna had treated it well and the Invega was discontinued. He reports his mood is making some mild improvements, although he does note mood variation still that is difficult with alternating elation and depression within minutes of each other. He's not had any major behavioral problems and reports doing better. Review Of Systems General: Denies fever or appetite changes Cardiovascular: Denies chest pain or palpitations GI: Denies Nausea, vomiting, or bowel changes Respiratory: Denies shortness of breath or cough Neuro: Denies dizziness, tremors at this time. Denies restlessness. Derm: Denies any rashes or pruritus : Denies any dysuria or urinary hesitancy MSK: Denies any muscle tightness or stiffness HEENT: Denies sore throat at this time and headaches Heme: Denies any bleeding or bruising Endo/Lymph: Denies any heat/cold intolerance or dry skin Psychotherapy None on this visit. Vital Signs Reviewed. Mental Status Examination General: Fair hygiene Speech: Fluid Thought processes: Linear and logical MSK: Smooth and coordinated gait, no signs of tremors or involuntary orofacial movements Thought content: Less hopeless, less bizarre Abstract reasoning, and computation: Improving Description of associations: Improving Description of abnormal or psychotic thoughts: Admits to fleeting suicidal ideation at this time with no plan or intention Judgment: Improving Insight: Improving Orientation: Alert and orientated 3 Cognition: Grossly normal Recent and remote memory: Intact Attention span and concentration: Intact Fund of knowledge: Adequate Mood: "Okay" Affect: Improving range. Diagnoses Unspecified schizoaffective disorder. Rule out substance-induced from cannabis versus hallucinogens. Tobacco use disorder, severe. Alcohol use disorder, severe. Cannabis use disorder, severe. Hallucinogen use disorder, severe. Unspecified personality disorder. Likely cluster B. Assessment and Plan Unspecified schizoaffective disorder: Discontinue Invega due to EPS. Try Lamictal 25 mg daily. Discussed risks, benefits and potential side effects as well as alternative options. Patient selects this out of range. Tobacco use disorder: Offered Chantix, patient declined. Will continue nicotine patch. Alcohol use disorder: Alcohol withdrawal protocol. Discussed naltrexone. Patient pre-contemplative about naltrexone and injectable. Hallucinogen use disorder: Continue to monitor. Unspecified personality disorder: Monitor for behavioral problems. Disposition The patient will need further admission due to his unusual psychotic like symptoms and severe hopelessness and depression as well as consistent suicidal thoughts to stabilize his situation and to protect him from injuring himself. Time Spent 25 minutes [id number]. Monday Vital Signs Vital Signs Date Time Temp Pulse Resp B/P (MAP) Pulse Ox O2 Delivery O2 Flow Rate FiO2 05/15/19 08:06 Room Air 05/15/19 06:36 97.5 71 16 118/58 (78) 05/10/19 10:00 97 Current Medications Current Medications Medications (Trade) Dose Ordered Sig/Toño Route PRN Reason Start Time Stop Time Status Last Admin Dose Admin Acetaminophen (Tylenol Tab) 650 mg Q6HP PRN PO HEADACHE or DISCOMFORT 05/06/19 16:45 05/08/19 20:32 Al Hydrox/Mg Hydrox/Simethicone (Mylanta) 30 ml Q4HP PRN PO HEARTBURN/INDIGESTION 05/06/19 16:45 05/08/19 03:34 Benztropine Mesylate (Cogentin) 1 mg Q6HP PRN PO EPS 05/15/19 09:00 Dextromethorphan (Delsym Af 12hr Susp) 60 mg Q12H PO 05/07/19 21:00 05/09/19 10:33 DC 05/09/19 09:57 Dextromethorphan (Delsym Af 12hr Susp) 60 mg Q12H PO 05/09/19 21:00 05/15/19 08:48 Divalproex Sodium (Depakote Er) 250 mg QHS PO 05/10/19 21:00 05/13/19 13:08 DC 05/12/19 20:53 Folic Acid (Folic Acid) 1 mg DAILY PO 05/06/19 09:00 05/15/19 08:48 Home Med (Med Rec Complete!) ASDIRECTED XX 05/06/19 14:00 05/06/19 14:19 DC [place] Carbonate (Astatula Carbonate) 150 mg QHS PO 05/08/19 21:00 05/10/19 18:04 DC 05/09/19 19:56 [place] Carbonate (Lithobid Cr) 150 mg QHS PO 05/08/19 21:00 UNV [place] Carbonate (Lithobid Cr) 300 mg QHS PO 05/07/19 21:00 05/08/19 15:03 DC 05/07/19 20:19 Lorazepam (Ativan) 0.5 mg STAT STAT PO 05/13/19 16:06 05/13/19 16:10 DC 05/13/19 16:23 Lorazepam (Ativan) 2 mg ASDIRECTED PRN PO SEE PROTOCOL 05/06/19 19:30 05/11/19 11:53 DC 05/10/19 14:00 Magnesium Hydroxide (Milk Of Magnesia) 30 ml DAILYPRN PRN PO CONSTIPATION 05/06/19 16:45 Modafinil (Provigil) 50 mg QAM PO 05/10/19 09:00 05/10/19 18:03 DC 05/10/19 09:44 Multivitamins (Theragram-M) 1 tab DAILY PO 05/06/19 09:00 05/15/19 08:48 Nicotine (Nicoderm Cq 21mg) 1 patch DAILY TD 05/07/19 09:00 05/07/19 09:50 DC Nicotine (Nicorette) 2 mg Q2HP PRN PO SMOKING CESSATION 05/07/19 09:45 05/11/19 21:04 Paliperidone (Invega) 3 mg QHS PO 05/13/19 21:00 05/14/19 21:51 Thiamine HCl (Thiamine HCl) 100 mg BID PO 05/06/19 21:00 05/09/19 09:01 DC 05/09/19 08:56 Trazodone HCl (Desyrel) 50 mg QHSP PRN PO INSOMNIA 05/06/19 16:45 05/14/19 22:01 Allergies Coded Allergies: No Known Allergies (Verified , 10/28/11) DELORES SANON DO May 15, 2019 10:17
[2019-05-15] MEDS ORDERED: lamoTRIgine 25 MG TAB PO ONE (14:30)
[2019-05-15 16:18] VITALS: BP 110/61
[2019-05-15] MEDS: traZODone 50 MG TAB PO PRN (21:45)
[2019-05-15] MEDS ORDERED: LORazepam 2 MG TAB PO ONE (23:45)
[2019-05-16 06:00] VITALS: BP 138/73
[2019-05-16] MEDS: MULTIVITAMINS/MINERALS THERAP 1 TAB PO SCH (08:02)
[2019-05-16] MEDS: FOLIC ACID 1 MG TAB PO SCH (08:02)
[2019-05-16] MEDS: DEXTROMETHORPHAN 60MG/10ML SUSP 90ML BTL(DELSYM) PO SCH ×2 (08:03→20:11)
--- NOTE | 2019-05-16 08:19 | MHIPNPDOC ---
[facility] Progress Note Progress Note Inpatient Progress Note Osmani Beck MRN: N/A Date of : N/A Date of Service: 05/16/2019 History of Present Illness Patient is a 24-year old man with a history of schizo-affective disorder, presents to [facility] after multiple psychosocial stressors including joblessness, conflict with his mother, and seeing a young lady whose mother did not approve of, as well as multiple arguments and suffering from chronic suicidality, presents to [facility] with suicidal thoughts. He reports that he has had increasing depression, loss of interest, fatigue, difficulty concentrating. He reports significant cannabis use recently. He describes that he has had episodes of nery in the past. He is currently on Invega Trinza every 3 months, but reports that he has developed a persistent want to . On the unit, he reportedly last night told staff that he had tried to kill himself with tissue paper by trying to obstruct his airway. He reports a significant cough today. He was placed on a one-to-one out of abundance of caution. He does discuss the majority of these concerning symptoms with an unusual affect, which he giggles and laughs. He reports having a significantly complicated relationship with his girlfriend. Interval History The patient is met with today. He reports feeling "squirrely" since the restart of the medications. He reports more irritability and difficulty feeling calm. He reports no locked jaw or signs of EPS. He has been attending groups and generally amenable. He has been able to shave, he does report that he is feeling somewhat less hopeless and less suicidal and that his suicidal ideation is only fleeting at this time. The patient reports continued difficulty and reports that the only change was the Lamictal given this morning. Review Of Systems General: Denies fever or appetite changes Cardiovascular: Denies chest pain or palpitations GI: Denies Nausea, vomiting, or bowel changes Respiratory: Denies shortness of breath or cough Neuro: Denies dizziness, tremors at this time. Derm: Denies any rashes or pruritus : Denies any dysuria or urinary hesitancy MSK: Denies any muscle tightness or stiffness HEENT: Denies sore throat at this time and headaches Heme: Denies any bleeding or bruising Endo/Lymph: Denies any heat/cold intolerance or dry skin Psychotherapy None on this visit. Vital Signs Reviewed. Mental Status Examination General: Fair hygiene Speech: Fluid Thought processes: Linear and logical MSK: Smooth and coordinated gait, no signs of tremors or involuntary orofacial movements Thought content: Less hopeless, less bizarre Abstract reasoning, and computation: Improving Description of associations: Improving Description of abnormal or psychotic thoughts: Admits to fleeting suicidal ideation at this time with no plan or intention Judgment: Improving Insight: Improving Orientation: Alert and orientated 3 Cognition: Grossly normal Recent and remote memory: Intact Attention span and concentration: Intact Fund of knowledge: Adequate Mood: "Okay" Affect: Improving range. Diagnoses Unspecified schizoaffective disorder. Rule out substance-induced from cannabis versus hallucinogens. Tobacco use disorder, severe. Alcohol use disorder, severe. Cannabis use disorder, severe. Hallucinogen use disorder, severe. Unspecified personality disorder. Likely cluster B. Assessment and Plan Unspecified schizoaffective disorder: Discontinue the Lamictal due to possible increased concentration. Propranolol and Ativan given once PRN. Further observation. Tobacco use disorder: Offered Chantix, patient declined. Will continue nicotine patch. Alcohol use disorder: Alcohol withdrawal protocol. Discussed naltrexone. Patient pre-contemplative about naltrexone and injectable. Hallucinogen use disorder: Continue to monitor. Unspecified personality disorder: Monitor for behavioral problems. Disposition Patient will likely be discharged on Monday as his suicidality is resolving and he reports that he is feeling improved and will likely feel ready to return to outpatient. Time Spent 20 minutes face to face. Vital Signs Vital Signs Date Time Temp Pulse Resp B/P (MAP) Pulse Ox O2 Delivery O2 Flow Rate FiO2 05/16/19 06:00 98.6 78 16 138/73 (94) 05/15/19 08:06 Room Air 05/10/19 10:00 97 Current Medications Current Medications Medications (Trade) Dose Ordered Sig/Toño Route PRN Reason Start Time Stop Time Status Last Admin Dose Admin Acetaminophen (Tylenol Tab) 650 mg Q6HP PRN PO HEADACHE or DISCOMFORT 05/06/19 16:45 05/08/19 20:32 Al Hydrox/Mg Hydrox/Simethicone (Mylanta) 30 ml Q4HP PRN PO HEARTBURN/INDIGESTION 05/06/19 16:45 05/08/19 03:34 Benztropine Mesylate (Cogentin) 1 mg Q6HP PRN PO EPS 05/15/19 09:00 Dextromethorphan (Delsym Af 12hr Susp) 60 mg Q12H PO 05/07/19 21:00 05/09/19 10:33 DC 05/09/19 09:57 Dextromethorphan (Delsym Af 12hr Susp) 60 mg Q12H PO 05/09/19 21:00 05/16/19 08:03 Divalproex Sodium (Depakote Er) 250 mg QHS PO 05/10/19 21:00 05/13/19 13:08 DC 05/12/19 20:53 Folic Acid (Folic Acid) 1 mg DAILY PO 05/06/19 09:00 05/16/19 08:02 Home Med (Med Rec Complete!) ASDIRECTED XX 05/06/19 14:00 05/06/19 14:19 DC Lamotrigine (LaMICtal) 25 mg QAM PO 05/16/19 09:00 05/16/19 08:02 [place] Carbonate ([place] Carbonate) 150 mg QHS PO 05/08/19 21:00 05/10/19 18:04 DC 05/09/19 19:56 [place] Carbonate (Lithobid Cr) 150 mg QHS PO 05/08/19 21:00 UNV [place] Carbonate (Lithobid Cr) 300 mg QHS PO 05/07/19 21:00 05/08/19 15:03 DC 05/07/19 20:19 Lorazepam (Ativan) 0.5 mg STAT STAT PO 05/13/19 16:06 05/13/19 16:10 DC 05/13/19 16:23 Lorazepam (Ativan) 2 mg ASDIRECTED PRN PO SEE PROTOCOL 05/06/19 19:30 05/11/19 11:53 DC 05/10/19 14:00 Magnesium Hydroxide (Milk Of Magnesia) 30 ml DAILYPRN PRN PO CONSTIPATION 05/06/19 16:45 Modafinil (Provigil) 50 mg QAM PO 05/10/19 09:00 05/10/19 18:03 DC 05/10/19 09:44 Multivitamins (Theragram-M) 1 tab DAILY PO 05/06/19 09:00 05/16/19 08:02 Nicotine (Nicoderm Cq 21mg) 1 patch DAILY TD 05/07/19 09:00 05/07/19 09:50 DC Nicotine (Nicorette) 2 mg Q2HP PRN PO SMOKING CESSATION 05/07/19 09:45 05/11/19 21:04 Paliperidone (Invega) 3 mg QHS PO 05/13/19 21:00 05/15/19 14:13 DC 05/14/19 21:51 Thiamine HCl (Thiamine HCl) 100 mg BID PO 05/06/19 21:00 05/09/19 09:01 DC 05/09/19 08:56 Trazodone HCl (Desyrel) 50 mg QHSP PRN PO INSOMNIA 05/06/19 16:45 05/15/19 21:45 Allergies Coded Allergies: No Known Allergies (Verified , 10/28/11) DELORES SANON DO May 16, 2019 08:19
[2019-05-16] MEDS ORDERED: lamoTRIgine 25 MG TAB PO SCH (09:00)
[2019-05-16 18:00] VITALS: BP 159/79
[2019-05-16] MEDS ORDERED: PROPRANOLOL 10 MG TAB PO ONE (20:00)
[2019-05-16] MEDS: traZODone 50 MG TAB PO PRN (22:52)
[2019-05-17] MEDS: ACETAMINOPHEN TAB 650MG DOSE (2X325MG) PO PRN ×3 (00:03→22:15)
[2019-05-17 06:46] VITALS: BP 138/65
[2019-05-17] MEDS: MULTIVITAMINS/MINERALS THERAP 1 TAB PO SCH (09:11)
[2019-05-17] MEDS: FOLIC ACID 1 MG TAB PO SCH (09:11)
[2019-05-17] MEDS: DEXTROMETHORPHAN 60MG/10ML SUSP 90ML BTL(DELSYM) PO SCH ×2 (09:11→21:57)
--- NOTE | 2019-05-17 09:42 | MHIPNPDOC ---
[facility] Progress Note Progress Note Inpatient Progress Note Osmani Beck MRN: N/A Date of : N/A Date of Service: 05/17/2019 History of Present Illness Patient is a 24-year old man with a history of schizo-affective disorder, presents to [facility] after multiple psychosocial stressors including joblessness, conflict with his mother, and seeing a young lady whose mother did not approve of, as well as multiple arguments and suffering from chronic suicidality, presents to [facility] with suicidal thoughts. He reports that he has had increasing depression, loss of interest, fatigue, difficulty concentrating. He reports significant cannabis use recently. He describes that he has had episodes of nery in the past. He is currently on Invega Trinza every 3 months, but reports that he has developed a persistent want to . On the unit, he reportedly last night told staff that he had tried to kill himself with tissue paper by trying to obstruct his airway. He reports a significant cough today. He was placed on a one-to-one out of abundance of caution. He does discuss the majority of these concerning symptoms with an unusual affect, which he giggles and laughs. He reports having a significantly complicated relationship with his girlfriend. Interval History The patient is met with today with his parents. A long and complex discussion about the psychoeducation of drug use, bipolar disorder and treatment is undertaken. The patient does report that he has no suicidal ideation at this time and is interested in being discharged on Monday. His parents do report that they are concerned as the patient had relayed last week that he might just say what "we want to hear" in order to be discharged. The patient has been improving, playing chess, more euthymic on the unit and more interactive. He does report "feeling squirrelly," but is not clear whether this is a medication side effect or simply the patient's anxiety of being in the unit. Additionally, he remains on a CIWA, but has not been scoring. He had Ativan and propranolol last night that appeared to help him sleep and he did quite well. Reports better sleep, more motivation, less fatigue and better engagement in social settings. Review Of Systems As above. Psychotherapy None on this visit. Vital Signs Reviewed. Mental Status Examination General: Fair hygiene Speech: Fluid Thought processes: Linear and logical MSK: Smooth and coordinated gait, no signs of tremors or involuntary orofacial movements Thought content: Less hopeless, less bizarre Abstract reasoning, and computation: Improving Description of associations: Improving Description of abnormal or psychotic thoughts: Denies suicidal ideation at this time Judgment: Improving Insight: Improving Orientation: Alert and orientated 3 Cognition: Grossly normal Recent and remote memory: Intact Attention span and concentration: Intact Fund of knowledge: Adequate Mood: "Okay" Affect: More euthymic with a lizama range Diagnoses Unspecified schizoaffective disorder. Rule out substance-induced from cannabis versus hallucinogens. Tobacco use disorder, severe. Alcohol use disorder, severe. Cannabis use disorder, severe. Hallucinogen use disorder, severe. Unspecified personality disorder. Likely cluster B. Assessment and Plan Unspecified schizoaffective disorder: We will recommend Sustenna as parents report Sustenna was more effective for the patient's mood control than Trinza. A well-known problem with the 3-month injection is low plasma concentrations for the last month, which the patient is currently on. Tobacco use disorder: Offered Chantix, patient declined. Will continue nicotine patch. Alcohol use disorder: Alcohol withdrawal protocol. Discussed naltrexone. Patient pre-contemplative about naltrexone and injectable. Hallucinogen use disorder: Continue to monitor. Unspecified personality disorder: Monitor for behavioral problems. Disposition We will consider discharge on Monday. The patient continues to improve and no longer meets involuntary criteria in the form of denying suicidal thoughts, not demonstrating any severely impairing depression and is able to participate in his discharge. Time Spent 35 minutes with greater than half time spent on counseling/coordination of care. Monday Vital Signs Vital Signs Date Time Temp Pulse Resp B/P (MAP) Pulse Ox O2 Delivery O2 Flow Rate FiO2 05/17/19 06:46 98.9 68 18 138/65 (89) 05/15/19 08:06 Room Air Current Medications Current Medications Medications (Trade) Dose Ordered Sig/Toño Route PRN Reason Start Time Stop Time Status Last Admin Dose Admin Acetaminophen (Tylenol Tab) 650 mg Q6HP PRN PO HEADACHE or DISCOMFORT 05/06/19 16:45 05/17/19 00:03 Al Hydrox/Mg Hydrox/Simethicone (Mylanta) 30 ml Q4HP PRN PO HEARTBURN/INDIGESTION 05/06/19 16:45 05/08/19 03:34 Benztropine Mesylate (Cogentin) 1 mg Q6HP PRN PO EPS 05/15/19 09:00 Dextromethorphan (Delsym Af 12hr Susp) 60 mg Q12H PO 05/07/19 21:00 05/09/19 10:33 DC 05/09/19 09:57 Dextromethorphan (Delsym Af 12hr Susp) 60 mg Q12H PO 05/09/19 21:00 05/17/19 09:11 Divalproex Sodium (Depakote Er) 250 mg QHS PO 05/10/19 21:00 05/13/19 13:08 DC 05/12/19 20:53 Folic Acid (Folic Acid) 1 mg DAILY PO 05/06/19 09:00 05/17/19 09:11 Home Med (Med Rec Complete!) ASDIRECTED XX 05/06/19 14:00 05/06/19 14:19 DC Lamotrigine (LaMICtal) 25 mg QAM PO 05/16/19 09:00 05/16/19 19:54 DC 05/16/19 08:02 [place] Carbonate ([place] Carbonate) 150 mg QHS PO 05/08/19 21:00 05/10/19 18:04 DC 05/09/19 19:56 [place] Carbonate (Lithobid Cr) 150 mg QHS PO 05/08/19 21:00 UNV [place] Carbonate (Lithobid Cr) 300 mg QHS PO 05/07/19 21:00 05/08/19 15:03 DC 05/07/19 20:19 Lorazepam (Ativan) 0.5 mg STAT STAT PO 05/13/19 16:06 05/13/19 16:10 DC 05/13/19 16:23 Lorazepam (Ativan) 2 mg ASDIRECTED PRN PO SEE PROTOCOL 05/06/19 19:30 05/11/19 11:53 DC 05/10/19 14:00 Magnesium Hydroxide (Milk Of Magnesia) 30 ml DAILYPRN PRN PO CONSTIPATION 05/06/19 16:45 Modafinil (Provigil) 50 mg QAM PO 05/10/19 09:00 05/10/19 18:03 DC 05/10/19 09:44 Multivitamins (Theragram-M) 1 tab DAILY PO 05/06/19 09:00 05/17/19 09:11 Nicotine (Nicoderm Cq 21mg) 1 patch DAILY TD 05/07/19 09:00 05/07/19 09:50 DC Nicotine (Nicorette) 2 mg Q2HP PRN PO SMOKING CESSATION 05/07/19 09:45 05/11/19 21:04 Paliperidone (Invega) 3 mg QHS PO 05/13/19 21:00 05/15/19 14:13 DC 05/14/19 21:51 Propranolol HCl (Inderal) 10 mg TID PRN PO anxiety 05/16/19 20:00 Thiamine HCl (Thiamine HCl) 100 mg BID PO 05/06/19 21:00 05/09/19 09:01 DC 05/09/19 08:56 Trazodone HCl (Desyrel) 50 mg QHSP PRN PO INSOMNIA 05/06/19 16:45 05/16/19 22:52 Allergies Coded Allergies: No Known Allergies (Verified , 10/28/11) DELORES SANON DO May 17, 2019 09:42
[2019-05-17] MEDS ORDERED: OXAZEPAM 10 MG CAP PO PRN (12:30)
[2019-05-17] MEDS ORDERED: OXYMETAZOLINE NASAL SPRAY (AFRIN) PRN (12:30)
[2019-05-17] MEDS: CEPACOL LOZENGE PO PRN ×2 (14:16→22:15)
[2019-05-17 15:46] VITALS: BP 155/67
[2019-05-18 06:53] VITALS: BP 125/75
[2019-05-18] MEDS: DEXTROMETHORPHAN 60MG/10ML SUSP 90ML BTL(DELSYM) PO SCH ×2 (08:58→20:11)
[2019-05-18] MEDS: CEPACOL LOZENGE PO PRN ×3 (08:59→20:11)
[2019-05-18] MEDS: MULTIVITAMINS/MINERALS THERAP 1 TAB PO SCH (08:59)
[2019-05-18] MEDS: FOLIC ACID 1 MG TAB PO SCH (08:59)
[2019-05-18 16:03] VITALS: BP 113/63
[2019-05-18] MEDS: ACETAMINOPHEN TAB 650MG DOSE (2X325MG) PO PRN (18:07)
[2019-05-18] MEDS: traZODone 50 MG TAB PO PRN (22:16)
[2019-05-18] MEDS: PROPRANOLOL 10 MG TAB PO PRN (22:17)
[2019-05-18] MEDS ORDERED: QUEtiapine FUMARATE 25 MG TAB PO ONE (23:45)
[2019-05-19 06:38] VITALS: BP 115/68
[2019-05-19] MEDS: MULTIVITAMINS/MINERALS THERAP 1 TAB PO SCH (08:46)
[2019-05-19] MEDS: FOLIC ACID 1 MG TAB PO SCH (08:46)
[2019-05-19] MEDS: DEXTROMETHORPHAN 60MG/10ML SUSP 90ML BTL(DELSYM) PO SCH ×2 (08:46→21:05)
[2019-05-19 16:04] VITALS: BP 125/67
[2019-05-19] MEDS: PROPRANOLOL 10 MG TAB PO PRN (21:06)
[2019-05-19] MEDS: CEPACOL LOZENGE PO PRN (21:06)
[2019-05-19] MEDS: traZODone 50 MG TAB PO PRN (21:39)
[2019-05-20 06:21] VITALS: BP 121/64
[2019-05-20] MEDS: MULTIVITAMINS/MINERALS THERAP 1 TAB PO SCH (08:36)
[2019-05-20] MEDS: FOLIC ACID 1 MG TAB PO SCH (08:36)
[2019-05-20] MEDS: DEXTROMETHORPHAN 60MG/10ML SUSP 90ML BTL(DELSYM) PO SCH (08:37)
[2019-05-20] MEDS ORDERED: NICO2GUM PO (09:26)
--- NOTE | 2019-05-20 09:29 | MHDSPDOC ---
[facility] Discharge Summary Discharge Summary DATE OF ADMISSION: May 06, 2019 at 16:38 DATE OF DISCHARGE: 05/20/19 Discharge Osmani Beck MRN: N/[id number] Date of : N/A Date of Service: 05/20/2019 Diagnoses Unspecified schizoaffective disorder. Rule out substance-induced from cannabis versus hallucinogens. Tobacco use disorder, severe. Alcohol use disorder, severe. Cannabis use disorder, severe. Hallucinogen use disorder, severe. Unspecified personality disorder. Likely cluster B. History of Present Illness Patient is a 24-year old man with a history of schizo-affective disorder, presents to [facility] after multiple psychosocial stressors including joblessness, conflict with his mother, and seeing a young lady whose mother did not approve of, as well as multiple arguments and suffering from chronic suicidality, presents to [facility] with suicidal thoughts. He reports that he has had increasing depression, loss of interest, fatigue, difficulty concentrating. He reports significant cannabis use recently. He describes that he has had episodes of nery in the past. He is currently on Invega Trinza every 3 months, but reports that he has developed a persistent want to . On the unit, he reportedly last night told staff that he had tried to kill himself with tissue paper by trying to obstruct his airway. He reports a significant cough today. He was placed on a one-to-one out of abundance of caution. He does discuss the majority of these concerning symptoms with an unusual affect, which he giggles and laughs. He reports having a significantly complicated relationship with his girlfriend. Consultants Involved Hospitalist/PCP screening Treatment and Progress On The Unit The patient was admitted to the unit and tried on a number of different mood stabilizers as he had presented with primarily depressive symptoms. It was uncl ear whether substance intoxication, alcohol, marijuana or a number of different toxicants could be causing his low mood or adjustment to his complex social situation. He was tried on lithium, which over sedate him, Depakote which was ineffective and augmentation with oral Invega as his parents and himself had noted that the Trinzas had diminished effect on the final month. He has had two prior Invega Trinzas with poor results. He had some mild EPS and thus this was discontinued. On the Monday prior to his discharge, I had met with his parents, the patient had been denying suicidality for last few days prior and had been requesting to go. After discussion with his parents about the different options for treatment, they were amenable to him returning home and they had noted that he had done much better on Invega Sustenna. The patient's Trinza was due in April and thus the patient was started on Invega Sustenna 234 mg, which was the equivalent of his 819 mg Triza translated into the monthly injection. We epic application coordinator rdinated with [facility] in order to move his appointment for his injection and informed them of the medication change. On the day of discharge, he had been denying any suicidality for well over several days and had been able to attend to his needs, had been observed to be euthymic on the unit, able to function and go to groups and thus in my clinical judgment did not meet involuntary criteria for extension of his admission and had declined further voluntary admission and thus was discharged in good jaden. I gave this patient's referral information for AOT, TLS and ECT as potential options. Discharge Assessment A 24-year-old man with significant substance use and reported schizoaffective disorder treated with some mood stabilizers that have generally poor results. However, it appears that previous use of Sustenna was more helpful per parents and patient. The patient has significant substance abuse and his depression appears to resolve after both social situation and intoxication/withdrawal had been treated, further increasing my suspicion that the patient's decompensation was likely substance-related from a combination of alcohol and marijuana as well as any as yet unadmitted to substance use prior to admission. Mental Status Examination General: Well dressed with good hygiene Speech: Spontaneous and fluid Thought processes: Linear and logical MSK: Smooth and coordinated gait, no signs of tremors or involuntary orofacial movements Thought content: Future orientated Abstract reasoning, and computation: Intact Description of associations: Intact Description of abnormal or psychotic thoughts: Denies any suicidal or homicidal ideation. Denies any auditory or visual hallucinations. Does not appear to be responding to internal stimuli. Does not appear to be endorsing any bizarre or paranoid ideation. Judgment: fair Insight: fair Orientation: Alert and orientated 3 Cognition: Grossly normal Recent and remote memory: Intact Attention span and concentration: Intact Fund of knowledge: Adequate Mood: "okay" Affect: Euthymic with a full range Follow Up The social work team worked during the predischarge meeting in order to evaluate for further issues of lethality address them fully before discharge. They worked on safety planning with the patient's family members in order to ensure that the patient will have a safe and effective discharge. Time Spent The amount of time spent in the coordination of care for this patient was approximately 30 minutes. Monday Vital Signs/I&Os Vital Signs Date Time Temp Pulse Resp B/P (MAP) Pulse Ox O2 Delivery O2 Flow Rate FiO2 05/20/19 06:21 98.1 77 16 121/64 (83) 05/17/19 10:30 Room Air Laboratory Data Microbiology Microbiology 05/17/19 Respiratory Virus Panel (PCR) ([facility]) - Final, Complete Medications Scheduled PRN Nicotine Polacrilex (Nicotine Gum) 2 Mg Gum, 2 MG PO Q2HP PRN for SMOKING CESSATION for 30 Days, #2 Allergies Coded Allergies: No Known Allergies (Verified , 10/28/11) DELORES SANON DO May 20, 2019 09:29
[2019-05-20 10:29] VITALS: BP 126/75
[2019-05-20] MEDS: PROPRANOLOL 10 MG TAB PO PRN (10:29)
[2019-05-20] MEDS ORDERED: PALIPERIDONE PALMITATE 234MG/1.5ML INJ (INVEGA)(J2426)(FREE PSY INPT ONLY) IM ONE (11:00)
== END 2019-05-20 11:15 | disposition home or self-care (01) | DRG 750 ==
LOC: M ED 11:30 → M ED INP 16:38 → M PSY 17:30
PROVIDERS: ADMIT Psychiatry & Neurology Addiction Medicine; ATTEND Psychiatry & Neurology Addiction Medicine
DX: F25.9 Schizoaffective disorder, unspecified (principal); F17.210 Nicotine dependence, cigarettes, uncomplicated; F10.20 Alcohol dependence, uncomplicated; F12.20 Cannabis dependence, uncomplicated; F16.20 Hallucinogen dependence, uncomplicated; F60.89 Other specific personality disorders; Z79.899 Other long term (current) drug therapy; Z56.0 Unemployment, unspecified; Z60.9 Problem related to social environment, unspecified; Z63.0 Problems in relationship with spouse or partner

== ENCOUNTER → 2020-07-30 | Outpatient (REF) | payer OTHER ==
[~2020-07-30] MED LIST changes: +NICO2GUM PO
== END ==
LOC: M WUC 15:52
PROVIDERS: ATTEND Nurse Practitioner Family
DX: R10.30 Lower abdominal pain, unspecified (principal)

== ENCOUNTER → 2021-03-26 | Outpatient (CLI) | payer OTHER ==
--- NOTE | 2021-03-26 13:42 | REP ---
INDICATION: PAIN IN RIGHT SHOULDER. COMPARISON: None. TECHNIQUE: Three views of the right shoulder were performed. FINDINGS: The acromioclavicular and glenohumeral relationships are within normal limits. There is no acute fracture or destructive osseous lesion. IMPRESSION: Within normal limits <Electronically signed by Mckay Ochoa > 03/26/21 [id number]
== END ==
LOC: M PLAIMG 13:18
PROVIDERS: ATTEND Family Medicine
DX: M25.511 Pain in right shoulder (principal)

== ENCOUNTER → 2021-06-12 | Outpatient (CLI) | payer OTHER ==
--- NOTE | 2021-06-12 09:54 | REP ---
INDICATION: GENERALIZED ABDOMINAL PAIN. COMPARISON: None. TECHNIQUE: Two supine images of the abdomen were obtained. FINDINGS: The bowel gas pattern is normal. There is no evidence of abnormal bowel dilatation or free intraperitoneal air. There are no abnormal intra-abdominal mass effects. There are no abnormal soft tissue calcifications or radiopaque foreign bodies. There are no bony abnormalities. IMPRESSION: No evidence of acute abdominal pathology. <Electronically signed by Hakan Nam > 06/12/21 [id number]
[2021-06-12 09:59] LABS: BASO # 0.1 10^3/uL (0.0-0.2); BASO % 0.7 % (0.0-1.0); EOS # 0.3 10^3/uL (0.0-0.5); EOS % 2.4 % (0.0-3.0); HEMATOCRIT 45.2 % (42.0-52.0); HEMOGLOBIN 15.5 g/dl (13.5-17.5); LYMPH # 1.3 10^3/uL (1.5-5.0); LYMPH % 12.7 % (24.0-44.0); MEAN CORPUSCULAR HEMOGLOBIN 30.5 pg (27.0-33.0); MEAN CORPUSCULAR HGB CONC 34.3 g/dl (32.0-36.5); MONO # 0.8 10^3/uL (0.0-0.8); MONO % 7.8 % (2.0-8.0); NEUTROPHILS # 7.9 10^3/uL (1.5-8.5); NEUTROPHILS % 75.9 % (36.0-66.0); PLATELET COUNT, AUTOMATED 242 10^3/uL (150-450); RED BLOOD COUNT 5.08 10^6/uL (4.30-6.10); WHITE BLOOD COUNT 10.4 10^3/uL (4.0-10.0)
[2021-06-12 10:44] LABS: ALBUMIN 4.2 GM/DL (3.2-5.2); ALT/SGPT 60 U/L (12-78); AMYLASE 56 U/L (25-115); BLOOD UREA NITROGEN 12 MG/DL (7-18); CALCIUM LEVEL 9.4 MG/DL (8.5-10.1); CARBON DIOXIDE LEVEL 29 MEQ/L (21-32); CHLORIDE LEVEL 107 MEQ/L (98-107); CREATININE FOR GFR 1.36 MG/DL (0.70-1.30); GLOMERULAR FILTRATION RATE > 60.0 (>60); GLUCOSE, FASTING 77 MG/DL (70-100); LIPASE 71 U/L (73-393); POTASSIUM SERUM 3.5 MEQ/L (3.5-5.1); SODIUM LEVEL 139 MEQ/L (136-145); TOTAL PROTEIN 7.2 GM/DL (6.4-8.2)
== END ==
LOC: M RAD 09:24
PROVIDERS: ATTEND Family Medicine
DX: R10.84 Generalized abdominal pain (principal)

== ENCOUNTER → 2021-08-11 | Outpatient (CLI) | payer OTHER ==
[2021-08-11 18:04] LABS: ALBUMIN 4.5 GM/DL (3.2-5.2); ALT/SGPT 74 U/L (12-78); BILIRUBIN,TOTAL 0.6 MG/DL (0.2-1.0); BLOOD UREA NITROGEN 13 MG/DL (7-18); CALCIUM LEVEL 9.3 MG/DL (8.5-10.1); CARBON DIOXIDE LEVEL 26 MEQ/L (21-32); CHLORIDE LEVEL 107 MEQ/L (98-107); CREATININE FOR GFR 0.98 MG/DL (0.70-1.30); GLOMERULAR FILTRATION RATE > 60.0 (>60); GLUCOSE, FASTING 90 MG/DL (70-100); POTASSIUM SERUM 3.4 MEQ/L (3.5-5.1); SODIUM LEVEL 139 MEQ/L (136-145); TOTAL PROTEIN 7.3 GM/DL (6.4-8.2)
[2021-08-11 19:10] LABS: HEMOGLOBIN A1c 4.9 %
== END ==
LOC: M LAB 16:19
PROVIDERS: ATTEND Family Medicine
DX: F20.9 Schizophrenia, unspecified (principal)

== ENCOUNTER → 2023-02-28 | Outpatient (CLI) | payer MEDICARE, MEDICAID ==
[2023-02-28 15:59] LABS: BASO # 0.1 10^3/uL (0.0-0.2); BASO % 0.8 % (0.0-1.0); EOS # 0.2 10^3/uL (0.0-0.5); EOS % 1.8 % (0.0-3.0); HEMATOCRIT 42.2 % (42.0-52.0); HEMOGLOBIN 14.3 g/dl (13.5-17.5); LYMPH # 2.1 10^3/uL (1.5-5.0); LYMPH % 24.2 % (24.0-44.0); MEAN CORPUSCULAR HEMOGLOBIN 31.1 pg (27.0-33.0); MEAN CORPUSCULAR HGB CONC 33.9 g/dl (32.0-36.5); MEAN CORPUSCULAR VOLUME 91.7 fl (80.0-96.0); MONO # 0.7 10^3/uL (0.0-0.8); MONO % 7.5 % (2.0-8.0); NEUTROPHILS # 5.7 10^3/uL (1.5-8.5); NEUTROPHILS % 64.8 % (36.0-66.0); PLATELET COUNT, AUTOMATED 258 10^3/uL (150-450); WHITE BLOOD COUNT 8.8 10^3/uL (4.0-10.0)
[2023-02-28 16:07] LABS: HEMOGLOBIN A1c 4.9 % (4.0-6.0)
[2023-02-28 16:12] LABS: LITHIUM LEVEL 0.52 MMOL/L (1.0-1.20)
[2023-02-28 16:15] LABS: ALBUMIN 3.9 G/DL (3.2-5.2); ALKALINE PHOSPHATASE 74 U/L (46-116); ALT/SGPT 55 U/L (7.0-40); AST/SGOT 18 U/L (<34); BILIRUBIN,TOTAL 0.9 MG/DL (0.3-1.2); BLOOD UREA NITROGEN 17 MG/DL (9-23); CARBON DIOXIDE LEVEL 26 MMOL/L (20-31); CHLORIDE LEVEL 104 MMOL/L (98-107); CHOLESTEROL LEVEL 166 MG/DL (<200); CHOLESTEROL RISK RATIO 3.35 (<5); CREATININE FOR GFR 1.02 MG/DL (0.70-1.30); GLOMERULAR FILTRATION RATE > 60.0 (>60); GLUCOSE, FASTING 79 MG/DL (60-100); HDL CHOLESTEROL 49.5 MG/DL (>40); LDL CHOLESTEROL 98.3 MG/DL (<100); NON-HDL-C 116.5 MG/DL; POTASSIUM SERUM 4.1 MMOL/L (3.5-5.1); SODIUM LEVEL 139 MMOL/L (136-145); THYROID STIMULATING HORMONE 3.739 uIU/ML (0.55-4.78); TOTAL PROTEIN 6.7 G/DL (5.7-8.2); TRIGLYCERIDES LEVEL 91 MG/DL (<150)
== END ==
LOC: M PLALAB 13:54
PROVIDERS: ATTEND Student in an Organized Health Care Education/Training Program
DX: F31.9 Bipolar disorder, unspecified (principal)